=== PATIENT | male | born 1980 ===

== ENCOUNTER 2020-02-11 16:06 | Emergency (ER) | payer OTHER, SELFPAY ==
[2020-02-11 16:20] VITALS: BP 117/65; PULSE 62; RESP 14; TEMP 36.7; O2SAT 98; BMI 28.7
--- NOTE | 2020-02-11 18:04 | PC.NURSE ---
Patient states he has to go home as his needs to go to work. VDC signed, placed in chart.
== END 2020-02-11 18:00 | disposition left against medical advice (07) ==
PROVIDERS: Emergency Provider Emergency Medicine
CPT/HCPCS: 99281

== ENCOUNTER → 2020-04-18 07:46 | Outpatient (CLI) | payer OTHER, SELFPAY ==
--- NOTE | 2020-04-18 | DI.MRI.S_ITS ---
PROCEDURE: MR HAND RT WO CON INDICATIONS: Pain in right finger(s) TECHNIQUE: Noncontrast coronal T1 spin echo and T2 fast spin echo with fat saturation, axial proton density fast spin echo and T2 fast spin echo with fat saturation, sagittal T1 spin echo and STIR through the hand and fingers. COMPARISON: None. FINDINGS: Image quality: Excellent. Bones: There is mild marrow edema involving the proximal phalanx of the middle finger at the PIP joint. There is subtle curvilinear low signal intensity possible nondisplaced fracture line seen on image 19/10. There is adjacent periarticular soft tissue edema. Thickened appearance of the ulnar and radial collateral ligaments of the PIP joint without definite complete rupture. Soft tissues: Fluid/edema surrounding the flexor tendons of the middle finger in keeping with tenosynovitis. There is mild thickening of the tendons in keeping with low-grade strain however no rupture identified. There is also edema surrounding the index finger flexor tendons to a lesser extent. The extensor tendons appear grossly intact. IMPRESSION: Periarticular soft tissue edema and thickened appearance of the ulnar and radial collateral ligaments of the middle finger PIP joint presumably reflecting high-grade sprain, without complete rupture. Possible nondisplaced fracture involving the proximal phalanx of the middle finger at the PIP joint although recommend dedicated evaluation with radiographs. Middle finger flexor tenosynovitis and low-grade tendinopathy. No rupture. Additional edema surrounding the index finger flexor tendons to a lesser extent. Dictated by: Tha Callahan M.D. on 04/18/2020 at 10:17 Approved by: Tha Callahan M.D. on 04/18/2020 at 10:26
== END ==
PROVIDERS: Referring Provider Student in an Organized Health Care Education/Training Program; Visit Provider Student in an Organized Health Care Education/Training Program
DX: M25.441 Effusion, right hand (principal); M65.841 Other synovitis and tenosynovitis, right hand
CPT/HCPCS: 73218

== ENCOUNTER 2024-03-16 09:45 | Outpatient (RCR) | payer OTHER, SELFPAY ==
--- NOTE | 2023-10-30 08:49 | PT.OIE ---
Current Diagnoses Pain in right shoulder (10/30/23) Abnormal posture (10/30/23) Weakness (10/30/23) Strain of muscle and tendon of front wall of thorax, initial encounter (10/30/23) Past Medical History (Last Updated 02/14/20 @ 11:47 by Kiesha De Oliveira PA-C) TMJ (temporomandibular joint syndrome) Visit Care Team Role Provider Type Lenin Clemons MD Attending Provider Physician Family Provider Primary Care Provider Referring Provider Specialty: [facility] Address: [facility] [place], [address] Email: [email or web address] [facility] Initial Evaluation PT-OP-A Visit Information Start: 10/30/23 08:13 Freq: Status: Active Protocol: Document 10/30/23 08:13 SAK (Rec: 10/30/23 09:03 SAK [id number]) Out-Patient Physical Therapy Visit Information Visit Information Visit Type Initial Evaluation Visit Start Time 08:15 Visit Stop Time 09:00 Visit Number 1 Evaluation Information Evaluation Date 10/30/23 PT-OP-B Current Condition Start: 10/30/23 08:13 Freq: Status: Active Protocol: Document 10/30/23 08:13 SAK (Rec: 10/30/23 09:03 SAK [id number]) Current Condition History of Current Condition Onset Date 6 months Current Complaints right shoulder pain History of Current Condition first experienced pain when bench pressing 140 lbs; gradually noticing, went traditional chinese herbalist, 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 Has't gotten better even with rest, cant reach behind back, painful lifting overhead. 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 Painful to sleep on right side. now painful picking up his 60 lb daughter Prior Treatments and Tests Ice, heat; didn't help much. Future Testing and Treatments Planned return to Dr. Barahona Treatment Goals Patient/Caregiver Goals Return to full active use of right arm. Prior Functional Status Baseline Function- ADL's Independent Baseline Function- Mobility Independent Baseline Function- Work/School no pain Baseline Function- Recreation/Hobbies no pain Current Functional Impairments (Reported) Functional Limitations- ADL's painful reaching overhead and behind his back Functional Limitations- Work/School painful to reach overhead and behind his back Functional Limitations- Recreation/ painful to reach overhead and Hobbies behind his back PT-OP-C Subjective Start: 10/30/23 08:13 Freq: Status: Active Protocol: Document 10/30/23 08:13 SAK (Rec: 11/03/23 08:48 SAK [id number]) Patient Questionnaires Quick Dash- Upper Extremity Quick Dash UE Score 32 Quick Dash UE Impairment 20 to 39% Impaired (Score 20- 39) OP-PT Pain Assessment Pain Assessment Grid Paper Pain Assessment Grid Completed Yes Location right shoulder Pain Location Details lateral with radiation into upper arm lateral Intensity 5 Scale Used Numeric (0 - 10) Description Aching,Pinching,Tender,With Movement Frequency Frequent Pain Aggravating Factors Position,ADL's,Bending,Lifting Other Pain Aggravating Factors reaching Pain Alleviating Factors None PT-OP-H Neuro Start: 10/30/23 08:13 Freq: Status: Active Protocol: Document 10/30/23 08:13 SAK (Rec: 10/30/23 09:03 SAK [id number]) Sensation Evaluation Gross Sensation Gross Sensation WNL PT-OP-J Posture/Palpation/Skin Start: 10/30/23 08:13 Freq: Status: Active Protocol: Document 10/30/23 08:13 SAK (Rec: 10/30/23 09:03 SAK [id number]) Posture Evaluation Position Sitting Head/C-Spine Posture Forward Head T-Spine Posture Increased Kyphosis Scapula Posture (L) Protracted,(R) Protracted Arm Posture (L) Internally Rotated,(R) Internally Rotated Palpation Assessment Location RC Palpation Findings Tenderness PT-OP-K Range of Motion Start: 10/30/23 08:13 Freq: Status: Active Protocol: Document 10/30/23 08:13 SAK (Rec: 10/30/23 09:03 SAK [id number]) Cervical Spine Range of Motion Cervical Spine Active Comments WNL Shoulder Goniometric Range of Motion Shoulder Right Shoulder ROM WFL No Flexion 142 Extension 140 Abduction 140 Internal Rotation Behind Back (text) posterior hip left Shoulder ROM WFL Yes Internal Rotation Behind Back (text) T7 Elbow/Forearm Range of Motion Elbow/Forearm oralia Elbow/Forearm ROM WFL Yes PT-OP-L Special Tests Start: 10/30/23 08:13 Freq: Status: Active Protocol: Document 10/30/23 08:13 [facility] (Rec: 11/03/23 08:48 [facility] [id number]) Special Tests Shoulder Special Tests [place] Impingement Test Results + Elevation Impingement Test Results + Drop Arm Rotator Cuff Test Results + inc pain Belly Press Test Results + inc pain PT-OP-M Strength Start: 10/30/23 08:13 Freq: Status: Active Protocol: Document 10/30/23 08:13 [facility] (Rec: 11/03/23 08:48 [facility] [id number]) Shoulder Strength Shoulder Manual Muscle Testing Right Flexion 4+ Good+ Extension 4+ Good+ Abduction (C5) 5 Normal Adduction 4 Good External Rotation 4 Good Internal Rotation 4 Good Horizontal Abduction 4 Good Comments lower trap 3-/5 Left Flexion 5 Normal Extension 5 Normal Abduction (C5) 5 Normal Adduction 5 Normal External Rotation 4+ Good+ Internal Rotation 4+ Good+ Horizontal Abduction 5 Normal Elbow/Forearm Strength Elbow and Forearm Manual Muscle Testing oralia Flexion (C6) 5 Normal Extension (C7) 5 Normal PT-OP-Q Treatments Start: 10/30/23 08:13 Freq: Status: Active Protocol: Document 10/30/23 08:13 [facility] (Rec: 11/03/23 08:48 [facility] [id number]) Self-Care/Home Management Treatment Education Patient Education Home Exercise Program,Pain Management,Posture PT-OP-T Assessment and Plan Start: 10/30/23 08:13 Freq: Status: Active Protocol: Document 10/30/23 08:13 [facility] (Rec: 11/03/23 08:48 [facility] [id number]) Physical Therapy Assessment Rehab Potential Rehabilitation Potential Good Evaluation Complexity Number of Personal Factors/Comorbidities 1-2 Number of Body Systems Impaired 3 Clinical Presentation at Evaluation Evolving Impairments Impairments Activity Tolerance,Pain, Posture,Strength Goals Three Impairment posterior chain and RC weakness Short Term Goal (STG) Patient to be instructed in individualized, progressive HEP for purposes of posterior chain and RC strengthening STG Duration 11/30/23 Fdc Goal (LTG) Patient to demonstrate 5/5 muscle strength right shoulder for improved shoulder function LTG Duration 01/30/24 Two Impairment postural impairment Impairment moderate rounded shoulder posture with shoulder IR and scapular protraction Short Term Goal (STG) Patient to be instructed neutral posture for shoulder function and be instructed in postural correction exercises and activities STG Duration 11/30/23 Vest Busheler Goal (LTG) Patient to be able to demonstrate good postural awareness and ability to self- correct without cues and be independnet and compliant with postural correction exercises and activities LTG Duration 01/30/24 One Impairment activity tolerance Impairment Quickdash UE disability index score 32% impacting ADL's,work , and recreation Short Term Goal (STG) Decrease Quickdash score to no greater than 20% STG Duration 11/30/23 Vest Busheler Goal (LTG) Decrease Quickdash score to no greater than 5% as measure of improved activity tolerance with ADL's, work, and recreational activities including ability to reach overhead and behind his back without pain. LTG Duration 01/30/24 Assessment Summary Assessment Patient presents to PT with function-limiting pain right shoulder , gradual onset but first felt during bench press at the gym. Pain has not subsided with rest and impacts patient daily activities at home, work, and recreation. Signs and symptoms are positive for right shoulder impingement with rotator cuff irritation. Patient has weakness in rotator cuff and posterior chain musculature as well as postural dysfunction which appear highly contributory. Feel he will benefit from PT to improve his postural alignment and strength, and help him return to prior level of function. Patient education with initial HEP issued today. POC was discussed and he was in agreement. Physical Therapy Plan Frequency and Duration Frequency of Treatment 2x/Week Duration of treatment (weeks) 12 Plan of Care Start Date 10/30/23 Plan of Care End Date 01/30/24 Therapeutic Interventions Therapeutic Interventions Home Exercise Program,Joint Mobilizations,Manual Therapy, Neuromuscular Re-education, Patient/Caregiver Education, Self-Care/Home Management,Soft Tissue Mobilization,Taping, Therapeutic Activities, Therapeutic Exercises Modalities Cold Pack/Ice Massage,Electric Stimulation,Hot Packs, Infrared Therapy,Iontophoresis ,Ultrasound Next Visit Focus/Plan Next Note Type Treatment Note Next Visit Plan Review HEP, further education in neutral posture, RC and posterior chain strengthening including I's, T's, Y's possibly starting supine over foam roller, progress to prone with resistance. Modalities and manual therapy PRN
--- NOTE | 2023-10-30 08:50 | PT.OPPOC ---
Physical, Occupational & Speech Therapy At [facility] Current Diagnoses Pain in right shoulder (10/30/23) Abnormal posture (10/30/23) Weakness (10/30/23) Strain of muscle and tendon of front wall of thorax, initial encounter (10/30/23) Visit Care Team Role Provider Type Lenin Clemons MD Attending Provider Physician Family Provider Primary Care Provider Referring Provider Specialty: Family Practice Address: [facility] [place], [place], [facility] Email: [email or web address] Plan Of Care PT-OP-T Assessment and Plan Start: 10/30/23 08:13 Freq: Status: Active Protocol: Document 10/30/23 08:13 SAK (Rec: 11/03/23 08:48 SAK [id number]) Physical Therapy Assessment Rehab Potential Rehabilitation Potential Good Evaluation Complexity Number of Personal Factors/Comorbidities 1-2 Number of Body Systems Impaired 3 Clinical Presentation at Evaluation Evolving Impairments Impairments Activity Tolerance,Pain, Posture,Strength Goals Three Impairment posterior chain and RC weakness Short Term Goal (STG) Patient to be instructed in individualized, progressive HEP for purposes of posterior chain and RC strengthening STG Duration 11/30/23 Algology Teacher Goal (LTG) Patient to demonstrate 5/5 muscle strength right shoulder for improved shoulder function LTG Duration 01/30/24 Two Impairment postural impairment Impairment moderate rounded shoulder posture with shoulder IR and scapular protraction Short Term Goal (STG) Patient to be instructed neutral posture for shoulder function and be instructed in postural correction exercises and activities STG Duration 11/30/23 Usp Goal (LTG) Patient to be able to demonstrate good postural awareness and ability to self- correct without cues and be independnet and compliant with postural correction exercises and activities LTG Duration 01/30/24 One Impairment activity tolerance Impairment Quickdash UE disability index score 32% impacting ADL's,work , and recreation Short Term Goal (STG) Decrease Quickdash score to no greater than 20% STG Duration 11/30/23 Algology Teacher Goal (LTG) Decrease Quickdash score to no greater than 5% as measure of improved activity tolerance with ADL's, work, and recreational activities including ability to reach overhead and behind his back without pain. LTG Duration 01/30/24 Assessment Summary Assessment Patient presents to PT with function-limiting pain right shoulder , gradual onset but first felt during bench press at the gym. Pain has not subsided with rest and impacts patient daily activities at home, work, and recreation. Signs and symptoms are positive for right shoulder impingement with rotator cuff irritation. Patient has weakness in rotator cuff and posterior chain musculature as well as postural dysfunction which appear highly contributory. Feel he will benefit from PT to improve his postural alignment and strength, and help him return to prior level of function. Patient education with initial HEP issued today. POC was discussed and he was in agreement. Physical Therapy Plan Frequency and Duration Frequency of Treatment 2x/Week Duration of treatment (weeks) 12 Plan of Care Start Date 10/30/23 Plan of Care End Date 01/30/24 Therapeutic Interventions Therapeutic Interventions Home Exercise Program,Joint Mobilizations,Manual Therapy, Neuromuscular Re-education, Patient/Caregiver Education, Self-Care/Home Management,Soft Tissue Mobilization,Taping, Therapeutic Activities, Therapeutic Exercises Modalities Cold Pack/Ice Massage,Electric Stimulation,Hot Packs, Infrared Therapy,Iontophoresis ,Ultrasound Next Visit Focus/Plan Next Note Type Treatment Note Next Visit Plan Review HEP, further education in neutral posture, RC and posterior chain strengthening including I's, T's, Y's possibly starting supine over foam roller, progress to prone with resistance. Modalities and manual therapy PRN Plan of Care Dates Plan of Care Start Date 10/30/23 Plan of Care End Date 01/30/24 Electronically Signed by: Sharita Haider, PT 11/03/23 0868 If you are in agreement with this Plan of Care, please return a signed and dated copy. I have reviewed this Plan of Care and certify that the skilled therapy services above are required to meet the patient?s needs. Physician Signature Date Printed Name and Credentials Clinical Instructor Signature Printed Name and Credentials
--- NOTE | 2023-11-04 12:03 | PT.OTN ---
Current Diagnoses Pain in right shoulder (11/04/23) Abnormal posture (11/04/23) Weakness (11/04/23) Strain of muscle and tendon of front wall of thorax, initial encounter (11/04/23) Physical Therapy Treatment Note PT-OP-A Visit Information Start: 10/30/23 08:13 Freq: Status: Active Protocol: Document 11/04/23 08:13 AB (Rec: 11/04/23 12:03 AB [id number]) Out-Patient Physical Therapy Visit Information Visit Information Visit Type Treatment Note Visit Start Time 09:03 Visit Stop Time 09:45 Visit Number 2 Number of TAX COMPLIANCE AGENT Visits 1 Evaluation Information Evaluation Date 10/30/23 PT-OP-B Current Condition Start: 10/30/23 08:13 Freq: Status: Active Protocol: Document 10/30/23 08:13 SAK (Rec: 10/30/23 09:03 SAK [id number]) Current Condition History of Current Condition Onset Date 6 months Current Complaints right shoulder pain History of Current Condition first experienced pain when bench pressing 140 lbs; gradually noticing, went potato grader, 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 Has't gotten better even with rest, cant reach behind back, painful lifting overhead. 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 Painful to sleep on right side. now painful picking up his 60 lb daughter Prior Treatments and Tests Ice, heat; didn't help much. Future Testing and Treatments Planned return to Dr. Barahona Treatment Goals Patient/Caregiver Goals Return to full active use of right arm. Prior Functional Status Baseline Function- ADL's Independent Baseline Function- Mobility Independent Baseline Function- Work/School no pain Baseline Function- Recreation/Hobbies no pain Current Functional Impairments (Reported) Functional Limitations- ADL's painful reaching overhead and behind his back Functional Limitations- Work/School painful to reach overhead and behind his back Functional Limitations- Recreation/ painful to reach overhead and Hobbies behind his back PT-OP-C Subjective Start: 10/30/23 08:13 Freq: Status: Active Protocol: Document 11/04/23 08:13 AB (Rec: 11/04/23 12:03 AB [id number]) OP-PT Subjective Patient Comments Patient Comments Patient reports he was better for a few days, but the ache returned in the last few days. AROM 144 deg right shoulder flexion start of session. PT-OP-H Neuro Start: 10/30/23 08:13 Freq: Status: Active Protocol: Document 10/30/23 08:13 SAK (Rec: 10/30/23 09:03 SAK [id number]) Sensation Evaluation Gross Sensation Gross Sensation WNL PT-OP-J Posture/Palpation/Skin Start: 10/30/23 08:13 Freq: Status: Active Protocol: Document 10/30/23 08:13 SAK (Rec: 10/30/23 09:03 SAK [id number]) Posture Evaluation Position Sitting Head/C-Spine Posture Forward Head T-Spine Posture Increased Kyphosis Scapula Posture (L) Protracted,(R) Protracted Arm Posture (L) Internally Rotated,(R) Internally Rotated Palpation Assessment Location RC Palpation Findings Tenderness PT-OP-K Range of Motion Start: 10/30/23 08:13 Freq: Status: Active Protocol: Document 10/30/23 08:13 SAK (Rec: 10/30/23 09:03 [facility] [id number]) Cervical Spine Range of Motion Cervical Spine Active Comments WNL Shoulder Goniometric Range of Motion Shoulder Right Shoulder ROM WFL No Flexion 142 Extension 140 Abduction 140 Internal Rotation Behind Back (text) posterior hip left Shoulder ROM WFL Yes Internal Rotation Behind Back (text) T7 Elbow/Forearm Range of Motion Elbow/Forearm oralia Elbow/Forearm ROM WFL Yes PT-OP-L Special Tests Start: 10/30/23 08:13 Freq: Status: Active Protocol: Document 10/30/23 08:13 SAK (Rec: 11/03/23 08:48 [facility] [id number]) Special Tests Shoulder Special Tests [place] Impingement Test Results + Elevation Impingement Test Results + Drop Arm Rotator Cuff Test Results + inc pain Belly Press Test Results + inc pain PT-OP-M Strength Start: 10/30/23 08:13 Freq: Status: Active Protocol: Document 10/30/23 08:13 SAK (Rec: 11/03/23 08:48 [facility] [id number]) Shoulder Strength Shoulder Manual Muscle Testing Right Flexion 4+ Good+ Extension 4+ Good+ Abduction (C5) 5 Normal Adduction 4 Good External Rotation 4 Good Internal Rotation 4 Good Horizontal Abduction 4 Good Comments lower trap 3-/5 Left Flexion 5 Normal Extension 5 Normal Abduction (C5) 5 Normal Adduction 5 Normal External Rotation 4+ Good+ Internal Rotation 4+ Good+ Horizontal Abduction 5 Normal Elbow/Forearm Strength Elbow and Forearm Manual Muscle Testing oralia Flexion (C6) 5 Normal Extension (C7) 5 Normal PT-OP-Q Treatments Start: 10/30/23 08:13 Freq: Status: Active Protocol: Document 11/04/23 08:13 AB (Rec: 11/04/23 12:03 AB [id number]) Therapeutic Exercises Supine Exercises mini band on foam roller Side bilateral Resistance level one band Reps/Minutes X10 Comments Verbal cues alternating UE flexion on foam roller Supine Exercise Name soft foam roller Side bilateral Reps/Minutes X15 Comments 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 Supine Exercise Name on soft foam roller Side bilateral Reps/Minutes 2 minutes Comments verbal cues Standing Exercises high row Resistance level 3 green band Reps/Minutes X15 Comments verbal and visual cues wall slide Side right Reps/Minutes X10 Comments Verbal cues to step to wall, wall slide flex, then lift UE off wall and low standing pec stretch Reps/Minutes X2 Comments Not jeannie, patient ed to discontinue at this time due to shoulder pain row Side bilateral Equipment Used level 3 green band Reps/Minutes 15 X2 Comments verbal and visual cues for row vs triceps/elbow extension Manual Therapy Treatment Soft Tissue Mobilization right shoulder Body Location pec, post cuff, UT and levator scap Mobilization Type Cross-Friction,Rolling, Sustained Pressure Intensity/Depth Moderate Body Position Hooklying Comments and sidelying Joint Mobilizations scapular mobilization Joint right Direction into depression and adduction Grade III Body Position Sidelying Reps/Duration X10 each GH right Direction ap and inf Grade IV Body Position Hooklying Reps/Duration X10 X2 PT-OP-T Assessment and Plan Start: 10/30/23 08:13 Freq: Status: Active Protocol: Document 11/04/23 08:13 AB (Rec: 11/04/23 12:03 AB [id number]) Physical Therapy Assessment Goals Three Impairment posterior chain and RC weakness Short Term Goal (STG) Patient to be instructed in individualized, progressive HEP for purposes of posterior chain and RC strengthening STG Duration 11/30/23 Custodial Goal (LTG) Patient to demonstrate 5/5 muscle strength right shoulder for improved shoulder function LTG Duration 01/30/24 Two Impairment postural impairment Impairment moderate rounded shoulder posture with shoulder IR and scapular protraction Short Term Goal (STG) Patient to be instructed neutral posture for shoulder function and be instructed in postural correction exercises and activities STG Duration 11/30/23 Custodial Goal (LTG) Patient to be able to demonstrate good postural awareness and ability to self- correct without cues and be independnet and compliant with postural correction exercises and activities LTG Duration 01/30/24 One Impairment activity tolerance Impairment Quickdash UE disability index score 32% impacting ADL's,work , and recreation Short Term Goal (STG) Decrease Quickdash score to no greater than 20% STG Duration 11/30/23 Patient Partner Goal (LTG) Decrease Quickdash score to no greater than 5% as measure of improved activity tolerance with ADL's, work, and recreational activities including ability to reach overhead and behind his back without pain. LTG Duration 01/30/24 Assessment Summary Assessment AROM right shoulder flexion 149 deg end of session. ROM and strength right shoulder not yet WNL. Physical Therapy Plan Frequency and Duration Frequency of Treatment 2x/Week Duration of treatment (weeks) 12 Plan of Care Start Date 10/30/23 Plan of Care End Date 01/30/24 Next Visit Focus/Plan Next Visit Plan Review HEP, further education in neutral posture, RC and posterior chain strengthening including I's, T's, Y's possibly starting supine over foam roller, progress to prone with resistance. Modalities and manual therapy PRN
--- NOTE | 2023-11-07 10:07 | PT.OTN ---
Current Diagnoses Pain in right shoulder (11/07/23) Abnormal posture (11/07/23) Weakness (11/07/23) Strain of muscle and tendon of front wall of thorax, initial encounter (11/07/23) Physical Therapy Treatment Note PT-OP-A Visit Information Start: 10/30/23 08:13 Freq: Status: Active Protocol: Document 11/07/23 08:08 AB (Rec: 11/07/23 09:30 AB [id number]) Out-Patient Physical Therapy Visit Information Visit Information Visit Type Treatment Note Visit Note Access Code [email or web address] Visit Start Time 09:03 Visit Stop Time 09:46 Visit Number 3 Number of LIFT ELECTRICIAN Visits 2 Evaluation Information Evaluation Date 10/30/23 PT-OP-B Current Condition Start: 10/30/23 08:13 Freq: Status: Active Protocol: Document 10/30/23 08:13 SAK (Rec: 10/30/23 09:03 SAK [id number]) Current Condition History of Current Condition Onset Date 6 months Current Complaints right shoulder pain History of Current Condition first experienced pain when bench pressing 140 lbs; gradually noticing, 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 Has't gotten better even with rest, cant reach behind back, painful lifting overhead. 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 Painful to sleep on right side. now painful picking up his 60 lb daughter Prior Treatments and Tests Ice, heat; didn't help much. Future Testing and Treatments Planned return to Dr. Barahona Treatment Goals Patient/Caregiver Goals Return to full active use of right arm. Prior Functional Status Baseline Function- ADL's Independent Baseline Function- Mobility Independent Baseline Function- Work/School no pain Baseline Function- Recreation/Hobbies no pain Current Functional Impairments (Reported) Functional Limitations- ADL's painful reaching overhead and behind his back Functional Limitations- Work/School painful to reach overhead and behind his back Functional Limitations- Recreation/ painful to reach overhead and Hobbies behind his back PT-OP-C Subjective Start: 10/30/23 08:13 Freq: Status: Active Protocol: Document 11/07/23 08:08 AB (Rec: 11/07/23 09:30 AB [id number]) OP-PT Subjective Patient Comments Patient Comments Patient reports the shoulder is the same. Patient reports pain with pec stretch and no sensation of pulling with pec stretch. AROM 146 deg right shoulder flexion start of session. PT-OP-H Neuro Start: 10/30/23 08:13 Freq: Status: Active Protocol: Document 10/30/23 08:13 SAK (Rec: 10/30/23 09:03 [facility] [id number]) Sensation Evaluation Gross Sensation Gross Sensation WNL PT-OP-J Posture/Palpation/Skin Start: 10/30/23 08:13 Freq: Status: Active Protocol: Document 10/30/23 08:13 SAK (Rec: 10/30/23 09:03 [facility] [id number]) Posture Evaluation Position Sitting Head/C-Spine Posture Forward Head T-Spine Posture Increased Kyphosis Scapula Posture (L) Protracted,(R) Protracted Arm Posture (L) Internally Rotated,(R) Internally Rotated Palpation Assessment Location RC Palpation Findings Tenderness PT-OP-K Range of Motion Start: 10/30/23 08:13 Freq: Status: Active Protocol: Document 10/30/23 08:13 SAK (Rec: 10/30/23 09:03 [facility] [id number]) Cervical Spine Range of Motion Cervical Spine Active Comments WNL Shoulder Goniometric Range of Motion Shoulder Right Shoulder ROM WFL No Flexion 142 Extension 140 Abduction 140 Internal Rotation Behind Back (text) posterior hip left Shoulder ROM WFL Yes Internal Rotation Behind Back (text) T7 Elbow/Forearm Range of Motion Elbow/Forearm oralia Elbow/Forearm ROM WFL Yes PT-OP-L Special Tests Start: 10/30/23 08:13 Freq: Status: Active Protocol: Document 10/30/23 08:13 SAK (Rec: 11/03/23 08:48 [facility] [id number]) Special Tests Shoulder Special Tests [place] Impingement Test Results + Elevation Impingement Test Results + Drop Arm Rotator Cuff Test Results + inc pain Belly Press Test Results + inc pain PT-OP-M Strength Start: 10/30/23 08:13 Freq: Status: Active Protocol: Document 10/30/23 08:13 SAK (Rec: 11/03/23 08:48 [facility] [id number]) Shoulder Strength Shoulder Manual Muscle Testing Right Flexion 4+ Good+ Extension 4+ Good+ Abduction (C5) 5 Normal Adduction 4 Good External Rotation 4 Good Internal Rotation 4 Good Horizontal Abduction 4 Good Comments lower trap 3-/5 Left Flexion 5 Normal Extension 5 Normal Abduction (C5) 5 Normal Adduction 5 Normal External Rotation 4+ Good+ Internal Rotation 4+ Good+ Horizontal Abduction 5 Normal Elbow/Forearm Strength Elbow and Forearm Manual Muscle Testing oralia Flexion (C6) 5 Normal Extension (C7) 5 Normal PT-OP-Q Treatments Start: 10/30/23 08:13 Freq: Status: Active Protocol: Document 11/07/23 08:08 AB (Rec: 11/07/23 09:30 AB [id number]) Therapeutic Exercises Supine Exercises shoulder flexion Supine Exercise Name AROM Side bilateral Reps/Minutes X10 Comments verbal cues for 10 sec hold, monitored for pain mini band on foam roller Reps/Minutes not jeannie alternating UE flexion on foam roller Supine Exercise Name soft foam roller Side bilateral Reps/Minutes X15 Comments Verbal cues Sitting Exercises short sit to upright Side bilateral Reps/Minutes 1x Comments not jeannie, verbal cues, monitored for pain pec stretch Sitting Exercise Name hands behind head Side bilateral Reps/Minutes 60 X 2 Comments verbal and visual cues Standing Exercises push up plus Reps/Minutes X1 Comments not jeannie L stretch Side bilateral Reps/Minutes 15 seconds X 3 isometric reactive shoulder IR and ER Side right Resistance level one band Reps/Minutes X15 wall slide Side right Reps/Minutes X10 Comments Verbal cues to step to wall, wall slide flex, then lift UE off wall and low standing pec stretch Reps/Minutes X2 Comments Not jeannie, patient ed to discontinue at this time due to shoulder pain Manual Therapy Treatment Soft Tissue Mobilization right shoulder Body Location pec, post cuff, UT and levator scap Mobilization Type Cross-Friction,Rolling, Sustained Pressure Intensity/Depth Moderate Body Position Hooklying Comments and sidelying Joint Mobilizations scapular mobilization Joint right Direction into depression and adduction Grade III Body Position Sidelying Reps/Duration X10 each GH right Direction ap and inf Grade IV Body Position Hooklying Reps/Duration X10 X2 PT-OP-T Assessment and Plan Start: 10/30/23 08:13 Freq: Status: Active Protocol: Document 11/07/23 08:08 AB (Rec: 11/07/23 09:30 AB [id number]) Physical Therapy Assessment Goals Three Impairment posterior chain and RC weakness Short Term Goal (STG) Patient to be instructed in individualized, progressive HEP for purposes of posterior chain and RC strengthening STG Duration 11/30/23 Long-Term Goal (LTG) Patient to demonstrate 5/5 muscle strength right shoulder for improved shoulder function LTG Duration 01/30/24 Two Impairment postural impairment Impairment moderate rounded shoulder posture with shoulder IR and scapular protraction Short Term Goal (STG) Patient to be instructed neutral posture for shoulder function and be instructed in postural correction exercises and activities STG Duration 11/30/23 Rotating Equipment Specialist Goal (LTG) Patient to be able to demonstrate good postural awareness and ability to self- correct without cues and be independnet and compliant with postural correction exercises and activities LTG Duration 01/30/24 One Impairment activity tolerance Impairment Quickdash UE disability index score 32% impacting ADL's,work , and recreation Short Term Goal (STG) Decrease Quickdash score to no greater than 20% STG Duration 11/30/23 Long-Term Goal (LTG) Decrease Quickdash score to no greater than 5% as measure of improved activity tolerance with ADL's, work, and recreational activities including ability to reach overhead and behind his back without pain. LTG Duration 01/30/24 Assessment Summary Assessment AROM right shoulder 154 deg flexion end of session should allow Edgard to reach items placed at higher levels in the home. Decreased jeannie to mini band and wall push up, short sit ( light weightbearing ex) this session. Physical Therapy Plan Frequency and Duration Frequency of Treatment 2x/Week Duration of treatment (weeks) 12 Plan of Care Start Date 10/30/23 Plan of Care End Date 01/30/24 Next Visit Focus/Plan Next Note Type Treatment Note Next Visit Plan next session trial further education in neutral posture, RC and focus on posterior chain strengthening including I's, T's, Y's possibly starting supine over foam roller, progress to prone with resistance. Modalities and manual therapy PRN
--- NOTE | 2023-11-11 08:08 | PT-OP ANOTE ---
patient cancelled due to waking up with a fever
--- NOTE | 2023-11-21 16:32 | PT.OTN ---
Current Diagnoses Pain in right shoulder (11/21/23) Abnormal posture (11/21/23) Weakness (11/21/23) Strain of muscle and tendon of front wall of thorax, initial encounter (11/21/23) Physical Therapy Treatment Note PT-OP-A Visit Information Start: 10/30/23 08:13 Freq: Status: Active Protocol: Document 11/21/23 12:47 AB (Rec: 11/21/23 16:32 AB [id number]) Out-Patient Physical Therapy Visit Information Visit Information Visit Type Treatment Note Visit Note Access Code [email or web address] Visit Start Time 14:33 Visit Stop Time 15:17 Visit Number 4 Number of SOLID WASTE FACILITY SUPERVISOR Visits 3 Evaluation Information Evaluation Date 10/30/23 PT-OP-B Current Condition Start: 10/30/23 08:13 Freq: Status: Active Protocol: Document 10/30/23 08:13 SAK (Rec: 10/30/23 09:03 SAK [id number]) Current Condition History of Current Condition Onset Date 6 months Current Complaints right shoulder pain History of Current Condition first experienced pain when bench pressing 140 lbs; 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 Has't gotten better even with rest, cant reach behind back, painful lifting overhead. 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 Painful to sleep on right side. now painful picking up his 60 lb daughter Prior Treatments and Tests Ice, heat; didn't help much. Future Testing and Treatments Planned return to Dr. Barahona Treatment Goals Patient/Caregiver Goals Return to full active use of right arm. Prior Functional Status Baseline Function- ADL's Independent Baseline Function- Mobility Independent Baseline Function- Work/School no pain Baseline Function- Recreation/Hobbies no pain Current Functional Impairments (Reported) Functional Limitations- ADL's painful reaching overhead and behind his back Functional Limitations- Work/School painful to reach overhead and behind his back Functional Limitations- Recreation/ painful to reach overhead and Hobbies behind his back PT-OP-C Subjective Start: 10/30/23 08:13 Freq: Status: Active Protocol: Document 11/21/23 12:47 AB (Rec: 11/21/23 16:32 AB [id number]) OP-PT Subjective Patient Comments Patient Comments Patient reports he did some mountain biking with daughter ( light mt biking ) and had pain that night. AROM 143 deg right shoulder flexion start of session. PT-OP-H Neuro Start: 10/30/23 08:13 Freq: Status: Active Protocol: Document 10/30/23 08:13 SAK (Rec: 10/30/23 09:03 [facility] [id number]) Sensation Evaluation Gross Sensation Gross Sensation WNL PT-OP-J Posture/Palpation/Skin Start: 10/30/23 08:13 Freq: Status: Active Protocol: Document 10/30/23 08:13 SAK (Rec: 10/30/23 09:03 [facility] [id number]) Posture Evaluation Position Sitting Head/C-Spine Posture Forward Head T-Spine Posture Increased Kyphosis Scapula Posture (L) Protracted,(R) Protracted Arm Posture (L) Internally Rotated,(R) Internally Rotated Palpation Assessment Location RC Palpation Findings Tenderness PT-OP-K Range of Motion Start: 10/30/23 08:13 Freq: Status: Active Protocol: Document 10/30/23 08:13 SAK (Rec: 10/30/23 09:03 [facility] [id number]) Cervical Spine Range of Motion Cervical Spine Active Comments WNL Shoulder Goniometric Range of Motion Shoulder Right Shoulder ROM WFL No Flexion 142 Extension 140 Abduction 140 Internal Rotation Behind Back (text) posterior hip left Shoulder ROM WFL Yes Internal Rotation Behind Back (text) T7 Elbow/Forearm Range of Motion Elbow/Forearm oralia Elbow/Forearm ROM WFL Yes PT-OP-L Special Tests Start: 10/30/23 08:13 Freq: Status: Active Protocol: Document 10/30/23 08:13 SAK (Rec: 11/03/23 08:48 [facility] [id number]) Special Tests Shoulder Special Tests [place] Impingement Test Results + Elevation Impingement Test Results + Drop Arm Rotator Cuff Test Results + inc pain Belly Press Test Results + inc pain PT-OP-M Strength Start: 10/30/23 08:13 Freq: Status: Active Protocol: Document 10/30/23 08:13 SAK (Rec: 11/03/23 08:48 [facility] [id number]) Shoulder Strength Shoulder Manual Muscle Testing Right Flexion 4+ Good+ Extension 4+ Good+ Abduction (C5) 5 Normal Adduction 4 Good External Rotation 4 Good Internal Rotation 4 Good Horizontal Abduction 4 Good Comments lower trap 3-/5 Left Flexion 5 Normal Extension 5 Normal Abduction (C5) 5 Normal Adduction 5 Normal External Rotation 4+ Good+ Internal Rotation 4+ Good+ Horizontal Abduction 5 Normal Elbow/Forearm Strength Elbow and Forearm Manual Muscle Testing oralia Flexion (C6) 5 Normal Extension (C7) 5 Normal PT-OP-Q Treatments Start: 10/30/23 08:13 Freq: Status: Active Protocol: Document 11/21/23 12:47 AB (Rec: 11/21/23 16:32 AB [id number]) Therapeutic Exercises Supine Exercises mini band on foam roller Side bilateral Resistance single thickness level one Reps/Minutes X10 Comments monitored for pain alternating UE flexion on foam roller Supine Exercise Name soft foam roller Side bilateral Reps/Minutes X15 Comments 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 Supine Exercise Name on soft foam roller Side bilateral Reps/Minutes 2 minutes Comments verbal cues Prone Exercises prone Y,T's Prone Exercise Name Y 1 lb T 2 lb Side bilateral Resistance 1 lb y 2 lb T Reps/Minutes 2 X 10 each exercise Comments verbal cues Standing Exercises high row Resistance level 3 green band Reps/Minutes X15 Comments verbal and visual cues Manual Therapy Treatment Soft Tissue Mobilization right shoulder Body Location pec, post cuff, UT and levator scap Mobilization Type Cross-Friction,Rolling, Sustained Pressure Intensity/Depth Moderate Body Position Hooklying Comments and sidelying Joint Mobilizations scapular mobilization Joint right Direction into depression and adduction Grade III Body Position Sidelying Reps/Duration X10 each GH right Direction ap and inf Grade IV Body Position Hooklying Reps/Duration X10 X2 Taping right shoulder Body Location Pt ed to remove tape in 3-5 days or immediately if skin irritation occurs. Treatment Focus posture and dec UT/levator scap activation Type of Tape Kinesio Tape Skin Inspection WNL Comments ant shoulder to Rhomboids Levator scap with scap depression and UT with CS sidebend left, insertion back to origin PT-OP-T Assessment and Plan Start: 10/30/23 08:13 Freq: Status: Active Protocol: Document 11/21/23 12:47 AB (Rec: 11/21/23 16:32 AB [id number]) Physical Therapy Assessment Goals Three Impairment posterior chain and RC weakness Short Term Goal (STG) Patient to be instructed in individualized, progressive HEP for purposes of posterior chain and RC strengthening STG Duration 11/30/23 Retirement Goal (LTG) Patient to demonstrate 5/5 muscle strength right shoulder for improved shoulder function LTG Duration 01/30/24 Two Impairment postural impairment Impairment moderate rounded shoulder posture with shoulder IR and scapular protraction Short Term Goal (STG) Patient to be instructed neutral posture for shoulder function and be instructed in postural correction exercises and activities STG Duration 11/30/23 Retirement Goal (LTG) Patient to be able to demonstrate good postural awareness and ability to self- correct without cues and be independnet and compliant with postural correction exercises and activities LTG Duration 01/30/24 One Impairment activity tolerance Impairment Quickdash UE disability index score 32% impacting ADL's,work , and recreation Short Term Goal (STG) Decrease Quickdash score to no greater than 20% STG Duration 11/30/23 Retirement Goal (LTG) Decrease Quickdash score to no greater than 5% as measure of improved activity tolerance with ADL's, work, and recreational activities including ability to reach overhead and behind his back without pain. LTG Duration 01/30/24 Assessment Summary Assessment 150 deg AROM shoulder flexon right shoulder end of session should allow patient to reach items placed at higher levels in the home. Patient reports the KT tape feels good end of session. 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 Physical Therapy Plan Frequency and Duration Frequency of Treatment 2x/Week Duration of treatment (weeks) 12 Plan of Care Start Date 10/30/23 Plan of Care End Date 01/30/24 Therapeutic Interventions Therapeutic Interventions Home Exercise Program,Joint Mobilizations,Manual Therapy, Neuromuscular Re-education, Patient/Caregiver Education, Self-Care/Home Management,Soft Tissue Mobilization,Taping, Therapeutic Activities, Therapeutic Exercises Modalities Cold Pack/Ice Massage,Electric Stimulation,Hot Packs, Infrared Therapy,Iontophoresis ,Ultrasound Next Visit Focus/Plan Next Note Type Treatment Note Next Visit Plan next session trial further education in neutral posture, RC and focus on posterior chain strengthening including I's, possibly starting supine over foam roller, progress to prone with resistance. Assess tolerance to T's and Y's and Kinesiotape. Modalities and manual therapy PRN
--- NOTE | 2023-11-28 10:50 | PT.OTN ---
Current Diagnoses Pain in right shoulder (11/28/23) Abnormal posture (11/28/23) Weakness (11/28/23) Strain of muscle and tendon of front wall of thorax, initial encounter (11/28/23) Physical Therapy Treatment Note PT-OP-A Visit Information Start: 10/30/23 08:13 Freq: Status: Active Protocol: Document 11/28/23 08:10 AB (Rec: 11/28/23 10:50 AB [id number]) Out-Patient Physical Therapy Visit Information Visit Information Visit Type Treatment Note Visit Note Access Code [email or web address] Visit Start Time 08:20 Visit Stop Time 09:00 Visit Number 5 Number of MAMMALOGIST Visits 4 Evaluation Information Evaluation Date 10/30/23 PT-OP-B Current Condition Start: 10/30/23 08:13 Freq: Status: Active Protocol: Document 10/30/23 08:13 SAK (Rec: 10/30/23 09:03 SAK [id number]) Current Condition History of Current Condition Onset Date 6 months Current Complaints right shoulder pain History of Current Condition first experienced pain when bench pressing 140 lbs; gradually noticing, 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 Has't gotten better even with rest, cant reach behind back, painful lifting overhead. 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 Painful to sleep on right side. now painful picking up his 60 lb daughter Prior Treatments and Tests Ice, heat; didn't help much. Future Testing and Treatments Planned return to Dr. Barahona Treatment Goals Patient/Caregiver Goals Return to full active use of right arm. Prior Functional Status Baseline Function- ADL's Independent Baseline Function- Mobility Independent Baseline Function- Work/School no pain Baseline Function- Recreation/Hobbies no pain Current Functional Impairments (Reported) Functional Limitations- ADL's painful reaching overhead and behind his back Functional Limitations- Work/School painful to reach overhead and behind his back Functional Limitations- Recreation/ painful to reach overhead and Hobbies behind his back PT-OP-C Subjective Start: 10/30/23 08:13 Freq: Status: Active Protocol: Document 11/28/23 08:10 AB (Rec: 11/28/23 10:50 AB [id number]) OP-PT Subjective Patient Comments Patient Comments Patient reports the tape was helpful, and the shoulder is good, does have some pain with quick movement, pushing to get up out of bed. Patient able to perform short sit to upright right UE without pain. AROM right shoulder flexion 150 deg start of session, PT-OP-H Neuro Start: 10/30/23 08:13 Freq: Status: Active Protocol: Document 10/30/23 08:13 SAK (Rec: 10/30/23 09:03 SAK [id number]) Sensation Evaluation Gross Sensation Gross Sensation WNL PT-OP-J Posture/Palpation/Skin Start: 10/30/23 08:13 Freq: Status: Active Protocol: Document 10/30/23 08:13 SAK (Rec: 10/30/23 09:03 SAK [id number]) Posture Evaluation Position Sitting Head/C-Spine Posture Forward Head T-Spine Posture Increased Kyphosis Scapula Posture (L) Protracted,(R) Protracted Arm Posture (L) Internally Rotated,(R) Internally Rotated Palpation Assessment Location RC Palpation Findings Tenderness PT-OP-K Range of Motion Start: 10/30/23 08:13 Freq: Status: Active Protocol: Document 10/30/23 08:13 SAK (Rec: 10/30/23 09:03 [facility] [id number]) Cervical Spine Range of Motion Cervical Spine Active Comments WNL Shoulder Goniometric Range of Motion Shoulder Right Shoulder ROM WFL No Flexion 142 Extension 140 Abduction 140 Internal Rotation Behind Back (text) posterior hip left Shoulder ROM WFL Yes Internal Rotation Behind Back (text) T7 Elbow/Forearm Range of Motion Elbow/Forearm oralia Elbow/Forearm ROM WFL Yes PT-OP-L Special Tests Start: 10/30/23 08:13 Freq: Status: Active Protocol: Document 10/30/23 08:13 SAK (Rec: 11/03/23 08:48 [facility] [id number]) Special Tests Shoulder Special Tests [place] Impingement Test Results + Elevation Impingement Test Results + Drop Arm Rotator Cuff Test Results + inc pain Belly Press Test Results + inc pain PT-OP-M Strength Start: 10/30/23 08:13 Freq: Status: Active Protocol: Document 10/30/23 08:13 SAK (Rec: 11/03/23 08:48 [facility] [id number]) Shoulder Strength Shoulder Manual Muscle Testing Right Flexion 4+ Good+ Extension 4+ Good+ Abduction (C5) 5 Normal Adduction 4 Good External Rotation 4 Good Internal Rotation 4 Good Horizontal Abduction 4 Good Comments lower trap 3-/5 Left Flexion 5 Normal Extension 5 Normal Abduction (C5) 5 Normal Adduction 5 Normal External Rotation 4+ Good+ Internal Rotation 4+ Good+ Horizontal Abduction 5 Normal Elbow/Forearm Strength Elbow and Forearm Manual Muscle Testing oralia Flexion (C6) 5 Normal Extension (C7) 5 Normal PT-OP-Q Treatments Start: 10/30/23 08:13 Freq: Status: Active Protocol: Document 11/28/23 08:10 AB (Rec: 11/28/23 10:50 AB [id number]) Therapeutic Exercises Supine Exercises shoulder IR AROM Side right Reps/Minutes X15 Comments Pt ed use of self tactile cues Prone Exercises prone Y,T's Prone Exercise Name Ys only Resistance 1 lb Reps/Minutes 2X15 Comments monitored for pain Sidelying Exercises shoulder ER Side right Reps/Minutes X15 Comments verbal and tacile cues Sitting Exercises short sit to upright Side bilateral Reps/Minutes 2x X 2 Comments not jeannie, verbal cues, monitored for pain Standing Exercises statue of liberty Side right Resistance yellow therabar Reps/Minutes less than 30 sec Comments not jeannie push up plus Reps/Minutes X1 Comments not jeannie high row Resistance level 3 green band Reps/Minutes X15 Comments verbal and visual cues standing pec stretch Reps/Minutes X2 60 sec row Side bilateral Equipment Used level 3 green band Reps/Minutes 15 X2 Comments verbal and visual cues for row vs triceps/elbow extension Manual Therapy Treatment Soft Tissue Mobilization right shoulder Body Location pec, post cuff, UT and levator scap Mobilization Type Cross-Friction,Rolling, Sustained Pressure Intensity/Depth Moderate Body Position Hooklying Comments and sidelying Joint Mobilizations scapular mobilization Joint right Direction into depression and adduction Grade III Body Position Sidelying Reps/Duration X10 each GH right Direction ap and inf Grade IV Body Position Hooklying Reps/Duration X10 X2 PT-OP-T Assessment and Plan Start: 10/30/23 08:13 Freq: Status: Active Protocol: Document 11/28/23 08:10 AB (Rec: 11/28/23 10:50 AB [id number]) Physical Therapy Assessment Goals Three Impairment posterior chain and RC weakness Short Term Goal (STG) Patient to be instructed in individualized, progressive HEP for purposes of posterior chain and RC strengthening STG Duration 11/30/23 Weight Recorder Goal (LTG) Patient to demonstrate 5/5 muscle strength right shoulder for improved shoulder function LTG Duration 01/30/24 Two Impairment postural impairment Impairment moderate rounded shoulder posture with shoulder IR and scapular protraction Short Term Goal (STG) Patient to be instructed neutral posture for shoulder function and be instructed in postural correction exercises and activities STG Duration 11/30/23 Detention Goal (LTG) Patient to be able to demonstrate good postural awareness and ability to self- correct without cues and be independnet and compliant with postural correction exercises and activities LTG Duration 01/30/24 One Impairment activity tolerance Impairment Quickdash UE disability index score 32% impacting ADL's,work , and recreation Short Term Goal (STG) Decrease Quickdash score to no greater than 20% STG Duration 11/30/23 Detention Goal (LTG) Decrease Quickdash score to no greater than 5% as measure of improved activity tolerance with ADL's, work, and recreational activities including ability to reach overhead and behind his back without pain. LTG Duration 01/30/24 Assessment Summary Assessment 153 deg AROM right shoulder flexion end of session with patient rating pain 2/10. Patient reports a little pain with weight bearing ex/ wall push up and short sit and discomfort with rhythmic stablization/modified statue of liberty. Physical Therapy Plan Frequency and Duration Frequency of Treatment 2x/Week Duration of treatment (weeks) 12 Plan of Care Start Date 10/30/23 Plan of Care End Date 01/30/24 Next Visit Focus/Plan Next Note Type Treatment Note Next Visit Plan next session trial further education in neutral posture, RC/possibly revisit mini band and focus on posterior chain strengthening including I's, possibly starting supine over foam roller, progress to prone with resistance. Modalities and manual therapy PRN, assess jeannie to weight bearing push up plus on wall
--- NOTE | 2023-12-09 17:05 | PT.OTN ---
Current Diagnoses Pain in right shoulder (12/09/23) Abnormal posture (12/09/23) Weakness (12/09/23) Strain of muscle and tendon of front wall of thorax, initial encounter (12/09/23) Physical Therapy Treatment Note PT-OP-A Visit Information Start: 10/30/23 08:13 Freq: Status: Active Protocol: Document 12/09/23 10:33 SAK (Rec: 12/09/23 11:18 SAK [id number]) Out-Patient Physical Therapy Visit Information Visit Information Visit Type Treatment Note Visit Start Time 10:34 Visit Stop Time 11:18 Visit Number 6 Number of TRAINING AND DEVELOPMENT DIRECTOR Visits 0 Evaluation Information Evaluation Date 10/30/23 PT-OP-B Current Condition Start: 10/30/23 08:13 Freq: Status: Active Protocol: Document 10/30/23 08:13 SAK (Rec: 10/30/23 09:03 SAK [id number]) Current Condition History of Current Condition Onset Date 6 months Current Complaints right shoulder pain History of Current Condition first experienced pain when bench pressing 140 lbs; gradually noticing, 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 Has't gotten better even with rest, cant reach behind back, painful lifting overhead. 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 Painful to sleep on right side. now painful picking up his 60 lb daughter Prior Treatments and Tests Ice, heat; didn't help much. Future Testing and Treatments Planned return to Dr. Barahona Treatment Goals Patient/Caregiver Goals Return to full active use of right arm. Prior Functional Status Baseline Function- ADL's Independent Baseline Function- Mobility Independent Baseline Function- Work/School no pain Baseline Function- Recreation/Hobbies no pain Current Functional Impairments (Reported) Functional Limitations- ADL's painful reaching overhead and behind his back Functional Limitations- Work/School painful to reach overhead and behind his back Functional Limitations- Recreation/ painful to reach overhead and Hobbies behind his back PT-OP-C Subjective Start: 10/30/23 08:13 Freq: Status: Active Protocol: Document 12/09/23 10:33 SAK (Rec: 12/09/23 11:18 SAK [id number]) OP-PT Subjective Patient Comments Patient Comments LIfting his daughter has been a lot better, still difficulty pushing up in bed, closing sliding glass door, doing quick movements, but overall feels he continues to improve. Saw massage therapist who worked out a big knot under his shoulder blade. PT-OP-H Neuro Start: 10/30/23 08:13 Freq: Status: Active Protocol: Document 10/30/23 08:13 SAK (Rec: 10/30/23 09:03 [facility] [id number]) Sensation Evaluation Gross Sensation Gross Sensation WNL PT-OP-J Posture/Palpation/Skin Start: 10/30/23 08:13 Freq: Status: Active Protocol: Document 10/30/23 08:13 SAK (Rec: 10/30/23 09:03 [facility] [id number]) Posture Evaluation Position Sitting Head/C-Spine Posture Forward Head T-Spine Posture Increased Kyphosis Scapula Posture (L) Protracted,(R) Protracted Arm Posture (L) Internally Rotated,(R) Internally Rotated Palpation Assessment Location RC Palpation Findings Tenderness PT-OP-K Range of Motion Start: 10/30/23 08:13 Freq: Status: Active Protocol: Document 10/30/23 08:13 SAK (Rec: 10/30/23 09:03 [facility] [id number]) Cervical Spine Range of Motion Cervical Spine Active Comments WNL Shoulder Goniometric Range of Motion Shoulder Right Shoulder ROM WFL No Flexion 142 Extension 140 Abduction 140 Internal Rotation Behind Back (text) posterior hip left Shoulder ROM WFL Yes Internal Rotation Behind Back (text) T7 Elbow/Forearm Range of Motion Elbow/Forearm oralia Elbow/Forearm ROM WFL Yes PT-OP-L Special Tests Start: 10/30/23 08:13 Freq: Status: Active Protocol: Document 10/30/23 08:13 SAK (Rec: 11/03/23 08:48 [facility] [id number]) Special Tests Shoulder Special Tests [place] Impingement Test Results + Elevation Impingement Test Results + Drop Arm Rotator Cuff Test Results + inc pain Belly Press Test Results + inc pain PT-OP-M Strength Start: 10/30/23 08:13 Freq: Status: Active Protocol: Document 10/30/23 08:13 SAK (Rec: 11/03/23 08:48 [facility] [id number]) Shoulder Strength Shoulder Manual Muscle Testing Right Flexion 4+ Good+ Extension 4+ Good+ Abduction (C5) 5 Normal Adduction 4 Good External Rotation 4 Good Internal Rotation 4 Good Horizontal Abduction 4 Good Comments lower trap 3-/5 Left Flexion 5 Normal Extension 5 Normal Abduction (C5) 5 Normal Adduction 5 Normal External Rotation 4+ Good+ Internal Rotation 4+ Good+ Horizontal Abduction 5 Normal Elbow/Forearm Strength Elbow and Forearm Manual Muscle Testing oralia Flexion (C6) 5 Normal Extension (C7) 5 Normal PT-OP-Q Treatments Start: 10/30/23 08:13 Freq: Status: Active Protocol: Document 12/09/23 10:33 [facility] (Rec: 12/09/23 11:18 [facility] [id number]) Cardio Equipment Upper Body Ergometer (UBE) Duration (Minutes) 6 RPM 60 Seat Position 11 Height 3.5 Other mild (07/02 soreness) Gym Equipment Cable Column (Body Solid) scap shrug Details next session (on lat pull) lat pull Details next session Therapeutic Exercises Supine Exercises shoulder IR AROM Side right Reps/Minutes X15 Comments review alternating UE flexion on foam roller Supine Exercise Name black foam roller Side bilateral Reps/Minutes X15 Comments 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 Supine Exercise Name on soft foam roller Side bilateral Reps/Minutes 2 minutes Comments verbal cues Sidelying Exercises scap clocks Sidelying Exercise Name 9, 8, 7 Side right Resistance manual resistance Reps/Minutes 10x Comments verbal and tactile cues shoulder ER Side right Resistance 2# Reps/Minutes X15 Comments verbal and tacile cues Standing Exercises side plank Standing Exercise Name small angle moving toward ability to push up laterally Equipment Used wall Comments domo and with elbow flex/ext as jeannie high row Resistance level 3 green band Reps/Minutes X15 Comments verbal and visual cues row Side bilateral Equipment Used level 3 green band Reps/Minutes 15 X2 Comments verbal and visual cues for row for emphasis scapular motion Manual Therapy Treatment Joint Mobilizations scapular mobilization Joint right Direction into depression and adduction Grade III Body Position Sidelying Reps/Duration X10 each Taping right shoulder Body Location Pt ed to remove tape in 3-5 days or immediately if skin irritation occurs. Treatment Focus posture and dec UT/levator scap activation Type of Tape Kinesio Tape Skin Inspection WNL Comments T10 to ant should 75% stretch Levator scap with scap depression and UT with CS sidebend left, insertion back to origin PT-OP-T Assessment and Plan Start: 10/30/23 08:13 Freq: Status: Active Protocol: Document 12/09/23 10:33 [facility] (Rec: 12/09/23 11:18 SAK [id number]) Physical Therapy Assessment Goals Three Impairment posterior chain and RC weakness Short Term Goal (STG) Patient to be instructed in individualized, progressive HEP for purposes of posterior chain and RC strengthening STG Duration 11/30/23 Cabinet Finisher Goal (LTG) Patient to demonstrate 5/5 muscle strength right shoulder for improved shoulder function LTG Duration 01/30/24 Two Impairment postural impairment Impairment moderate rounded shoulder posture with shoulder IR and scapular protraction Short Term Goal (STG) Patient to be instructed neutral posture for shoulder function and be instructed in postural correction exercises and activities STG Duration 11/30/23 Group Home Goal (LTG) Patient to be able to demonstrate good postural awareness and ability to self- correct without cues and be independnet and compliant with postural correction exercises and activities LTG Duration 01/30/24 One Impairment activity tolerance Impairment Quickdash UE disability index score 32% impacting ADL's,work , and recreation Short Term Goal (STG) Decrease Quickdash score to no greater than 20% STG Duration 11/30/23 Group Home Goal (LTG) Decrease Quickdash score to no greater than 5% as measure of improved activity tolerance with ADL's, work, and recreational activities including ability to reach overhead and behind his back without pain. LTG Duration 01/30/24 Assessment Summary Assessment Patient improving function but with limitations especially movement of closing sliding door and push self up from bed as well as quick motions. He demonstrates poor scapular activation and control, some improvement with verbal and tactile cues, scap clocks, will need further work on scapular mechanics and stab. Physical Therapy Plan Frequency and Duration Frequency of Treatment 2x/Week Duration of treatment (weeks) 12 Plan of Care Start Date 10/30/23 Plan of Care End Date 01/30/24 Therapeutic Interventions Therapeutic Interventions Home Exercise Program,Joint Mobilizations,Manual Therapy, Neuromuscular Re-education, Patient/Caregiver Education, Self-Care/Home Management,Soft Tissue Mobilization,Taping, Therapeutic Activities, Therapeutic Exercises Modalities Cold Pack/Ice Massage,Electric Stimulation,Hot Packs, Infrared Therapy,Iontophoresis ,Ultrasound Next Visit Focus/Plan Next Note Type Treatment Note Next Visit Plan Continue shoulder ROM and strengthening, emphasis on scapular activation and stab, functional movements.
--- NOTE | 2023-12-11 15:54 | PT.OTN ---
Current Diagnoses Pain in right shoulder (12/11/23) Abnormal posture (12/11/23) Weakness (12/11/23) Strain of muscle and tendon of front wall of thorax, initial encounter (12/11/23) Physical Therapy Treatment Note PT-OP-A Visit Information Start: 10/30/23 08:13 Freq: Status: Active Protocol: Document 12/11/23 09:47 SAK (Rec: 12/11/23 10:33 [facility] [id number]) Out-Patient Physical Therapy Visit Information Visit Information Visit Type Treatment Note Visit Start Time 09:47 Visit Stop Time 11:18 Visit Number 7 Number of PRECISION MACHINIST Visits 0 Evaluation Information Evaluation Date 10/30/23 PT-OP-B Current Condition Start: 10/30/23 08:13 Freq: Status: Active Protocol: Document 10/30/23 08:13 SAK (Rec: 10/30/23 09:03 SAK [id number]) Current Condition History of Current Condition Onset Date 6 months Current Complaints right shoulder pain History of Current Condition first experienced pain when bench pressing 140 lbs; 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 Has't gotten better even with rest, cant reach behind back, painful lifting overhead. 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 Painful to sleep on right side. now painful picking up his 60 lb daughter Prior Treatments and Tests Ice, heat; didn't help much. Future Testing and Treatments Planned return to Dr. Barahona Treatment Goals Patient/Caregiver Goals Return to full active use of right arm. Prior Functional Status Baseline Function- ADL's Independent Baseline Function- Mobility Independent Baseline Function- Work/School no pain Baseline Function- Recreation/Hobbies no pain Current Functional Impairments (Reported) Functional Limitations- ADL's painful reaching overhead and behind his back Functional Limitations- Work/School painful to reach overhead and behind his back Functional Limitations- Recreation/ painful to reach overhead and Hobbies behind his back PT-OP-C Subjective Start: 10/30/23 08:13 Freq: Status: Active Protocol: Document 12/11/23 09:47 SAK (Rec: 12/11/23 10:33 SAK [id number]) OP-PT Subjective Patient Comments Patient Comments Sore yesterday after PT, today better, seemed mostly muscle soreness. Surprises him how weak his scapular muscles are. Can do pullups, hangs without pain, stabilization exercises in PT fatiguing PT-OP-H Neuro Start: 10/30/23 08:13 Freq: Status: Active Protocol: Document 10/30/23 08:13 SAK (Rec: 10/30/23 09:03 [facility] [id number]) Sensation Evaluation Gross Sensation Gross Sensation WNL PT-OP-J Posture/Palpation/Skin Start: 10/30/23 08:13 Freq: Status: Active Protocol: Document 10/30/23 08:13 SAK (Rec: 10/30/23 09:03 [facility] [id number]) Posture Evaluation Position Sitting Head/C-Spine Posture Forward Head T-Spine Posture Increased Kyphosis Scapula Posture (L) Protracted,(R) Protracted Arm Posture (L) Internally Rotated,(R) Internally Rotated Palpation Assessment Location RC Palpation Findings Tenderness PT-OP-K Range of Motion Start: 10/30/23 08:13 Freq: Status: Active Protocol: Document 10/30/23 08:13 SAK (Rec: 10/30/23 09:03 [facility] [id number]) Cervical Spine Range of Motion Cervical Spine Active Comments WNL Shoulder Goniometric Range of Motion Shoulder Right Shoulder ROM WFL No Flexion 142 Extension 140 Abduction 140 Internal Rotation Behind Back (text) posterior hip left Shoulder ROM WFL Yes Internal Rotation Behind Back (text) T7 Elbow/Forearm Range of Motion Elbow/Forearm oralia Elbow/Forearm ROM WFL Yes PT-OP-L Special Tests Start: 10/30/23 08:13 Freq: Status: Active Protocol: Document 10/30/23 08:13 SAK (Rec: 11/03/23 08:48 [facility] [id number]) Special Tests Shoulder Special Tests [place] Impingement Test Results + Elevation Impingement Test Results + Drop Arm Rotator Cuff Test Results + inc pain Belly Press Test Results + inc pain PT-OP-M Strength Start: 10/30/23 08:13 Freq: Status: Active Protocol: Document 10/30/23 08:13 SAK (Rec: 11/03/23 08:48 [facility] [id number]) Shoulder Strength Shoulder Manual Muscle Testing Right Flexion 4+ Good+ Extension 4+ Good+ Abduction (C5) 5 Normal Adduction 4 Good External Rotation 4 Good Internal Rotation 4 Good Horizontal Abduction 4 Good Comments lower trap 3-/5 Left Flexion 5 Normal Extension 5 Normal Abduction (C5) 5 Normal Adduction 5 Normal External Rotation 4+ Good+ Internal Rotation 4+ Good+ Horizontal Abduction 5 Normal Elbow/Forearm Strength Elbow and Forearm Manual Muscle Testing oralia Flexion (C6) 5 Normal Extension (C7) 5 Normal PT-OP-Q Treatments Start: 10/30/23 08:13 Freq: Status: Active Protocol: Document 12/11/23 09:47 [facility] (Rec: 12/11/23 10:33 [facility] [id number]) Cardio Equipment Upper Body Ergometer (UBE) Duration (Minutes) 6 RPM 60 Seat Position 11 Height 3.5 Other mild (07/02 soreness) Gym Equipment Cable Column (Body Solid) scap shrug Resistance 90,110 Reps/Time 10x2 lat pull Resistance 90,110 Reps/Time 10x2 Therapeutic Exercises Prone Exercises scap retraction Prone Exercise Name straight elbow Side right Reps/Minutes 10x2 Comments verbal and tactile cues plank serratus plus Reps/Minutes 10x2 Comments denied pain prone Y,T's Side right Reps/Minutes 10x2 Comments verbal and tactile cues; reported difficulty Y's but no pain Standing Exercises Body blade Standing Exercise Name oralia fwd, unil fwd, ir/er, statue liberty Equipment Used small, med, large Reps/Minutes 30 sec ea x 2 sets Comments fatiguing, started small warm up then 1 set med, 1 set lg isometric reactive shoulder IR and ER Standing Exercise Name sidestepping Side right Resistance L2, L3 Reps/Minutes X15 PT-OP-T Assessment and Plan Start: 10/30/23 08:13 Freq: Status: Active Protocol: Document 12/11/23 09:47 [facility] (Rec: 12/11/23 10:33 [facility] [id number]) Physical Therapy Assessment Goals Three Impairment posterior chain and RC weakness Short Term Goal (STG) Patient to be instructed in individualized, progressive HEP for purposes of posterior chain and RC strengthening 12/11/23: continue to progress and modify, partiallymet STG Duration 11/30/23 Care Home Goal (LTG) Patient to demonstrate 5/5 muscle strength right shoulder for improved shoulder function LTG Duration 01/30/24 Two Impairment postural impairment Impairment moderate rounded shoulder posture with shoulder IR and scapular protraction Short Term Goal (STG) Patient to be instructed neutral posture for shoulder function and be instructed in postural correction exercises and activities 12/11/23: goal met STG Duration 11/30/23 Gluer Goal (LTG) Patient to be able to demonstrate good postural awareness and ability to self- correct without cues and be independnet and compliant with postural correction exercises and activities LTG Duration 01/30/24 One Impairment activity tolerance Impairment Quickdash UE disability index score 32% impacting ADL's,work , and recreation Short Term Goal (STG) Decrease Quickdash score to no greater than 20% 12/11/23: goal progress, 24% STG Duration 11/30/23 Gluer Goal (LTG) Decrease Quickdash score to no greater than 5% as measure of improved activity tolerance with ADL's, work, and recreational activities including ability to reach overhead and behind his back without pain. LTG Duration 01/30/24 Progress Towards Goals Progress Towards Goals Progressing Toward Goals Assessment Summary Assessment Focus scapular stab today with patient reporting fatigue but min to no pain with ther ex. Updated written HO for HEP. Mod verbal and tactile cues for initiating movements by setting scapula, working in pain-free ROM. Able to do all 4's then plank serratus plus movement and lat pull scap shrug. Added Body blade with good tolerance. Physical Therapy Plan Frequency and Duration Frequency of Treatment 2x/Week Duration of treatment (weeks) 12 Plan of Care Start Date 10/30/23 Plan of Care End Date 01/30/24 Therapeutic Interventions Therapeutic Interventions Home Exercise Program,Joint Mobilizations,Manual Therapy, Neuromuscular Re-education, Patient/Caregiver Education, Self-Care/Home Management,Soft Tissue Mobilization,Taping, Therapeutic Activities, Therapeutic Exercises Modalities Cold Pack/Ice Massage,Electric Stimulation,Hot Packs, Infrared Therapy,Iontophoresis ,Ultrasound Next Visit Focus/Plan Next Note Type Treatment Note Next Visit Plan Continue shoulder ROM and strengthening, emphasis on scapular activation and stab, functional movements. Patient to be gone for work, resume PT when he returns.
--- NOTE | 2024-01-13 14:31 | PT-OP ANOTE ---
pt cancelled PT appointment
--- NOTE | 2024-01-27 12:54 | PT.OTN ---
Current Diagnoses Pain in right shoulder (01/27/24) Abnormal posture (01/27/24) Weakness (01/27/24) Strain of muscle and tendon of front wall of thorax, initial encounter (01/27/24) Physical Therapy Treatment Note PT-OP-A Visit Information Start: 10/30/23 08:13 Freq: Status: Active Protocol: Document 01/27/24 08:09 AB (Rec: 01/27/24 12:54 AB [id number]) Out-Patient Physical Therapy Visit Information Visit Information Visit Type Treatment Note Visit Start Time 09:49 Visit Stop Time 10:32 Visit Number 8 Number of CHEF & OWNER Visits 1 Evaluation Information Evaluation Date 10/30/23 PT-OP-B Current Condition Start: 10/30/23 08:13 Freq: Status: Active Protocol: Document 10/30/23 08:13 SAK (Rec: 10/30/23 09:03 SAK [id number]) Current Condition History of Current Condition Onset Date 6 months Current Complaints right shoulder pain History of Current Condition first experienced pain when bench pressing 140 lbs; 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 Has't gotten better even with rest, cant reach behind back, painful lifting overhead. 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 Painful to sleep on right side. now painful picking up his 60 lb daughter Prior Treatments and Tests Ice, heat; didn't help much. Future Testing and Treatments Planned return to Dr. Barahona Treatment Goals Patient/Caregiver Goals Return to full active use of right arm. Prior Functional Status Baseline Function- ADL's Independent Baseline Function- Mobility Independent Baseline Function- Work/School no pain Baseline Function- Recreation/Hobbies no pain Current Functional Impairments (Reported) Functional Limitations- ADL's painful reaching overhead and behind his back Functional Limitations- Work/School painful to reach overhead and behind his back Functional Limitations- Recreation/ painful to reach overhead and Hobbies behind his back PT-OP-C Subjective Start: 10/30/23 08:13 Freq: Status: Active Protocol: Document 01/27/24 08:09 AB (Rec: 01/27/24 12:54 AB [id number]) OP-PT Subjective Patient Comments Patient Comments Patient reports he can do push ups without pain, but does get an ache. Patient reports clavicle on right is raised. AROM right shoulder flexion 145 deg. PT-OP-H Neuro Start: 10/30/23 08:13 Freq: Status: Active Protocol: Document 10/30/23 08:13 SAK (Rec: 10/30/23 09:03 [facility] [id number]) Sensation Evaluation Gross Sensation Gross Sensation WNL PT-OP-J Posture/Palpation/Skin Start: 10/30/23 08:13 Freq: Status: Active Protocol: Document 10/30/23 08:13 SAK (Rec: 10/30/23 09:03 SAK [id number]) Posture Evaluation Position Sitting Head/C-Spine Posture Forward Head T-Spine Posture Increased Kyphosis Scapula Posture (L) Protracted,(R) Protracted Arm Posture (L) Internally Rotated,(R) Internally Rotated Palpation Assessment Location RC Palpation Findings Tenderness PT-OP-K Range of Motion Start: 10/30/23 08:13 Freq: Status: Active Protocol: Document 10/30/23 08:13 SAK (Rec: 10/30/23 09:03 [facility] [id number]) Cervical Spine Range of Motion Cervical Spine Active Comments WNL Shoulder Goniometric Range of Motion Shoulder Right Shoulder ROM WFL No Flexion 142 Extension 140 Abduction 140 Internal Rotation Behind Back (text) posterior hip left Shoulder ROM WFL Yes Internal Rotation Behind Back (text) T7 Elbow/Forearm Range of Motion Elbow/Forearm oralia Elbow/Forearm ROM WFL Yes PT-OP-L Special Tests Start: 10/30/23 08:13 Freq: Status: Active Protocol: Document 10/30/23 08:13 SAK (Rec: 11/03/23 08:48 [facility] [id number]) Special Tests Shoulder Special Tests [place] Impingement Test Results + Elevation Impingement Test Results + Drop Arm Rotator Cuff Test Results + inc pain Belly Press Test Results + inc pain PT-OP-M Strength Start: 10/30/23 08:13 Freq: Status: Active Protocol: Document 10/30/23 08:13 SAK (Rec: 11/03/23 08:48 [facility] [id number]) Shoulder Strength Shoulder Manual Muscle Testing Right Flexion 4+ Good+ Extension 4+ Good+ Abduction (C5) 5 Normal Adduction 4 Good External Rotation 4 Good Internal Rotation 4 Good Horizontal Abduction 4 Good Comments lower trap 3-/5 Left Flexion 5 Normal Extension 5 Normal Abduction (C5) 5 Normal Adduction 5 Normal External Rotation 4+ Good+ Internal Rotation 4+ Good+ Horizontal Abduction 5 Normal Elbow/Forearm Strength Elbow and Forearm Manual Muscle Testing oralia Flexion (C6) 5 Normal Extension (C7) 5 Normal PT-OP-Q Treatments Start: 10/30/23 08:13 Freq: Status: Active Protocol: Document 01/27/24 08:09 AB (Rec: 01/27/24 12:54 AB [id number]) Therapeutic Exercises Sidelying Exercises shoulder ER Side right Resistance 2# Reps/Minutes X15 X2 first set without band Sitting Exercises scalene stretch Sitting Exercise Name sidebend, holding the chair Side bilateral Reps/Minutes 30 to 60 seconds Standing Exercises scapular depression Side bilateral Equipment Used level 5 band Reps/Minutes X15 Comments verbal and visual cues standing pec stretch Standing Exercise Name at door Reps/Minutes X2 60 sec row Side bilateral Equipment Used level 5 green band Reps/Minutes 15 X2 Comments verbal and visual cues for row for emphasis scapular motion Manual Therapy Treatment Soft Tissue Mobilization right shoulder Body Location pec,Scalenes R lat clavicle, post cuff, UT and levator scap Mobilization Type Cross-Friction,Rolling, Sustained Pressure Intensity/Depth Moderate Body Position Hooklying Comments and sidelying Joint Mobilizations right AC joint Direction inf Grade III Reps/Duration X5 X 2 twice Comments pre and post manual scapular mobilization Joint right Direction into depression and adduction Grade III Body Position Sidelying Reps/Duration X10 each GH right Direction ap and inf Grade IV Body Position Hooklying Reps/Duration X10 X2 PT-OP-T Assessment and Plan Start: 10/30/23 08:13 Freq: Status: Active Protocol: Document 01/27/24 08:09 AB (Rec: 01/27/24 12:54 AB [id number]) Physical Therapy Assessment Goals Three Impairment posterior chain and RC weakness Short Term Goal (STG) Patient to be instructed in individualized, progressive HEP for purposes of posterior chain and RC strengthening 12/11/23: continue to progress and modify, partiallymet STG Duration 11/30/23 Custodial Goal (LTG) Patient to demonstrate 5/5 muscle strength right shoulder for improved shoulder function LTG Duration 01/30/24 Two Impairment postural impairment Impairment moderate rounded shoulder posture with shoulder IR and scapular protraction Short Term Goal (STG) Patient to be instructed neutral posture for shoulder function and be instructed in postural correction exercises and activities 12/11/23: goal met STG Duration 11/30/23 Mushroom Cutter Goal (LTG) Patient to be able to demonstrate good postural awareness and ability to self- correct without cues and be independnet and compliant with postural correction exercises and activities LTG Duration 01/30/24 One Impairment activity tolerance Impairment Quickdash UE disability index score 32% impacting ADL's,work , and recreation Short Term Goal (STG) Decrease Quickdash score to no greater than 20% 12/11/23: goal progress, 24% STG Duration 11/30/23 Mushroom Cutter Goal (LTG) Decrease Quickdash score to no greater than 5% as measure of improved activity tolerance with ADL's, work, and recreational activities including ability to reach overhead and behind his back without pain. LTG Duration 01/30/24 Assessment Summary Assessment AROM right shoulder flexion 155 deg end fo session rating pain right shoulder a 2-3/10 ache. Physical Therapy Plan Frequency and Duration Frequency of Treatment 2x/Week Duration of treatment (weeks) 12 Plan of Care Start Date 10/30/23 Plan of Care End Date 01/30/24 Next Visit Focus/Plan Next Note Type Treatment Note Next Visit Plan Continue shoulder ROM and strengthening, emphasis on scapular activation and stab, functional movements.
--- NOTE | 2024-01-27 16:36 | PT.OTRE ---
Current Diagnoses Pain in right shoulder (01/27/24) Abnormal posture (01/27/24) Weakness (01/27/24) Strain of muscle and tendon of front wall of thorax, initial encounter (01/27/24) Past Medical History (Last Updated 02/14/20 @ 11:47 by Kiesha De Oliveira PA-C) TMJ (temporomandibular joint syndrome) Visit Care Team Role Provider Type Lenin Clemons MD Attending Provider Physician Family Provider Primary Care Provider Referring Provider Specialty: [facility] Address: [facility] [place], [facility] Email: [email or web address] Physical Therapy Re-Evaluation PT-OP-A Visit Information Start: 10/30/23 08:13 Freq: Status: Active Protocol: Document 01/27/24 16:23 SAK (Rec: 01/27/24 16:34 SAK [id number]) Out-Patient Physical Therapy Visit Information Visit Information Visit Type Progress Note Evaluation Information Evaluation Date 10/30/23 PT-OP-B Current Condition Start: 10/30/23 08:13 Freq: Status: Active Protocol: Document 01/27/24 16:23 SAK (Rec: 01/27/24 16:34 SAK [id number]) Current Condition History of Current Condition Onset Date 6 months Current Complaints right shoulder pain History of Current Condition first experienced pain when bench pressing 140 lbs; 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 Has't gotten better even with rest, cant reach behind back, painful lifting overhead. 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 Painful to sleep on right side. now painful picking up his 60 lb daughter Prior Treatments and Tests Ice, heat; didn't help much. Future Testing and Treatments Planned return to Dr. Barahona PT-OP-C Subjective Start: 10/30/23 08:13 Freq: Status: Active Protocol: Document 01/27/24 08:09 AB (Rec: 01/27/24 12:54 AB [id number]) OP-PT Subjective Patient Comments Patient Comments Patient reports he can do push ups without pain, but does get an ache. Patient reports clavicle on right is raised. AROM right shoulder flexion 145 deg. PT-OP-H Neuro Start: 10/30/23 08:13 Freq: Status: Active Protocol: Document 10/30/23 08:13 SAK (Rec: 10/30/23 09:03 SAK [id number]) Sensation Evaluation Gross Sensation Gross Sensation WNL PT-OP-J Posture/Palpation/Skin Start: 10/30/23 08:13 Freq: Status: Active Protocol: Document 10/30/23 08:13 SAK (Rec: 10/30/23 09:03 SAK [id number]) Posture Evaluation Position Sitting Head/C-Spine Posture Forward Head T-Spine Posture Increased Kyphosis Scapula Posture (L) Protracted,(R) Protracted Arm Posture (L) Internally Rotated,(R) Internally Rotated Palpation Assessment Location RC Palpation Findings Tenderness PT-OP-K Range of Motion Start: 10/30/23 08:13 Freq: Status: Active Protocol: Document 10/30/23 08:13 SAK (Rec: 10/30/23 09:03 SAK [id number]) Cervical Spine Range of Motion Cervical Spine Active Comments WNL Shoulder Goniometric Range of Motion Shoulder Measured in Degrees Right Shoulder ROM WFL No Flexion 142 Extension 140 Abduction 140 Internal Rotation Behind Back (text) posterior hip left Shoulder ROM WFL Yes Internal Rotation Behind Back (text) T7 Elbow/Forearm Range of Motion Elbow/Forearm Measured in Degrees oralia Elbow/Forearm ROM WFL Yes PT-OP-L Special Tests Start: 10/30/23 08:13 Freq: Status: Active Protocol: Document 10/30/23 08:13 SAK (Rec: 11/03/23 08:48 [facility] [id number]) Special Tests Shoulder Special Tests [place] Impingement Test Results + Elevation Impingement Test Results + Drop Arm Rotator Cuff Test Results + inc pain Belly Press Test Results + inc pain PT-OP-M Strength Start: 10/30/23 08:13 Freq: Status: Active Protocol: Document 10/30/23 08:13 SAK (Rec: 11/03/23 08:48 SAK [id number]) Shoulder Strength Shoulder Manual Muscle Testing Right Flexion 4+ Good+ Extension 4+ Good+ Abduction (C5) 5 Normal Adduction 4 Good External Rotation 4 Good Internal Rotation 4 Good Horizontal Abduction 4 Good Comments lower trap 3-/5 Left Flexion 5 Normal Extension 5 Normal Abduction (C5) 5 Normal Adduction 5 Normal External Rotation 4+ Good+ Internal Rotation 4+ Good+ Horizontal Abduction 5 Normal Elbow/Forearm Strength Elbow and Forearm Manual Muscle Testing oralia Flexion (C6) 5 Normal Extension (C7) 5 Normal PT-OP-Q Treatments Start: 10/30/23 08:13 Freq: Status: Active Protocol: Document 01/27/24 08:09 AB (Rec: 01/27/24 12:54 AB [id number]) Therapeutic Exercises Sidelying Exercises shoulder ER Side right Resistance 2# Reps/Minutes X15 X2 first set without band Sitting Exercises scalene stretch Sitting Exercise Name sidebend, holding the chair Side bilateral Reps/Minutes 30 to 60 seconds Standing Exercises scapular depression Side bilateral Equipment Used level 5 band Reps/Minutes X15 Comments verbal and visual cues standing pec stretch Standing Exercise Name at door Reps/Minutes X2 60 sec row Side bilateral Equipment Used level 5 green band Reps/Minutes 15 X2 Comments verbal and visual cues for row for emphasis scapular motion Manual Therapy Treatment Soft Tissue Mobilization right shoulder Body Location pec,Scalenes R lat clavicle, post cuff, UT and levator scap Mobilization Type Cross-Friction,Rolling, Sustained Pressure Intensity/Depth Moderate Body Position Hooklying Comments and sidelying Joint Mobilizations right AC joint Direction inf Grade III Reps/Duration X5 X 2 twice Comments pre and post manual scapular mobilization Joint right Direction into depression and adduction Grade III Body Position Sidelying Reps/Duration X10 each GH right Direction ap and inf Grade IV Body Position Hooklying Reps/Duration X10 X2 PT-OP-T Assessment and Plan Start: 10/30/23 08:13 Freq: Status: Active Protocol: Document 01/27/24 16:23 [facility] (Rec: 01/27/24 16:34 [facility] [id number]) Physical Therapy Assessment Goals Three Impairment posterior chain and RC weakness Short Term Goal (STG) Patient to be instructed in individualized, progressive HEP for purposes of posterior chain and RC strengthening 12/11/23: continue to progress and modify, partiallymet 01/27/24: goal met STG Duration goal met Hole Digger Goal (LTG) Patient to demonstrate 5/5 muscle strength right shoulder for improved shoulder function 01/27/24: not fully met due to pain with resistance LTG Duration 03/28/24 Two Impairment postural impairment Impairment moderate rounded shoulder posture with shoulder IR and scapular protraction Short Term Goal (STG) Patient to be instructed neutral posture for shoulder function and be instructed in postural correction exercises and activities 12/11/23: goal met STG Duration goal met Long-Term Goal (LTG) Patient to be able to demonstrate good postural awareness and ability to self- correct without cues and be independnet and compliant with postural correction exercises and activities 01/27/24: patient still needing some verbal and tactile cues but improved LTG Duration 03/28/24 One Impairment activity tolerance Impairment Quickdash UE disability index score 32% impacting ADL's,work , and recreation Short Term Goal (STG) Decrease Quickdash score to no greater than 20% 12/11/23: goal progress, 24% 01/30/24: not done today. Patient continues to have difficulty reaching overhead, behind his back, and participating in recreastional activities. Right shoulder elevation end of PT session 155 degrees. STG Duration 02/27/24 Long-Term Goal (LTG) Decrease Quickdash score to no greater than 5% as measure of improved activity tolerance with ADL's, work, and recreational activities including ability to reach overhead and behind his back without pain. LTG Duration 03/31/24 Assessment Summary Assessment Patient reports continued pain , can only elevate his right UE to 155 degrees and reporting his pain 2-3/10. He has had 8 PT appointments over the past 3 months and has been highly motivated and compliant to his HEP. Although he has made some progress toward goals he continues to have pain and difficuty with reaching overhead and behind his back, and is limited in his work and recreational activities, as well as ADL's. Pinching pain right AC joint and some impingment symptoms. Feel further imaging may be indicated for this patient Physical Therapy Plan Frequency and Duration Frequency of Treatment 2x/Week Duration of treatment (weeks) 8 Plan of Care Start Date 01/27/24 Plan of Care End Date 03/28/24 Next Visit Focus/Plan Next Note Type Treatment Note Next Visit Plan Continue shoulder ROM and strengthening, emphasis on scapular activation and stab, functional movements per POC. Recommend further imaging of his right shoulder
--- NOTE | 2024-01-27 16:36 | PT.OPPOC ---
Physical, Occupational & Speech Therapy At [facility] Current Diagnoses Pain in right shoulder (01/27/24) Abnormal posture (01/27/24) Weakness (01/27/24) Strain of muscle and tendon of front wall of thorax, initial encounter (01/27/24) Visit Care Team Role Provider Type Lenin Clemons MD Attending Provider Physician Family Provider Primary Care Provider Referring Provider Specialty: Family Practice Address: [facility] [place], [place], [facility] Email: [email or web address] Plan Of Care PT-OP-B Current Condition Start: 10/30/23 08:13 Freq: Status: Active Protocol: Document 01/27/24 16:23 SAK (Rec: 01/27/24 16:34 [facility] [id number]) Current Condition History of Current Condition Onset Date 6 months Current Complaints right shoulder pain History of Current Condition first experienced pain when bench pressing 140 lbs; 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 Has't gotten better even with rest, cant reach behind back, painful lifting overhead. 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 Painful to sleep on right side. now painful picking up his 60 lb daughter Prior Treatments and Tests Ice, heat; didn't help much. Future Testing and Treatments Planned return to Dr. Barahona PT-OP-T Assessment and Plan Start: 10/30/23 08:13 Freq: Status: Active Protocol: Document 01/27/24 16:23 SAK (Rec: 01/27/24 16:34 [facility] [id number]) Physical Therapy Assessment Goals Three Impairment posterior chain and RC weakness Short Term Goal (STG) Patient to be instructed in individualized, progressive HEP for purposes of posterior chain and RC strengthening 12/11/23: continue to progress and modify, partiallymet 01/27/24: goal met STG Duration goal met Usp Goal (LTG) Patient to demonstrate 5/5 muscle strength right shoulder for improved shoulder function 01/27/24: not fully met due to pain with resistance LTG Duration 03/28/24 Two Impairment postural impairment Impairment moderate rounded shoulder posture with shoulder IR and scapular protraction Short Term Goal (STG) Patient to be instructed neutral posture for shoulder function and be instructed in postural correction exercises and activities 12/11/23: goal met STG Duration goal met Hhas Goal (LTG) Patient to be able to demonstrate good postural awareness and ability to self- correct without cues and be independnet and compliant with postural correction exercises and activities 01/27/24: patient still needing some verbal and tactile cues but improved LTG Duration 03/28/24 One Impairment activity tolerance Impairment Quickdash UE disability index score 32% impacting ADL's,work , and recreation Short Term Goal (STG) Decrease Quickdash score to no greater than 20% 12/11/23: goal progress, 24% 01/30/24: not done today. Patient continues to have difficulty reaching overhead, behind his back, and participating in recreastional activities. Right shoulder elevation end of PT session 155 degrees. STG Duration 02/27/24 Usp Goal (LTG) Decrease Quickdash score to no greater than 5% as measure of improved activity tolerance with ADL's, work, and recreational activities including ability to reach overhead and behind his back without pain. LTG Duration 03/31/24 Assessment Summary Assessment Patient reports continued pain , can only elevate his right UE to 155 degrees and reporting his pain 2-3/10. He has had 8 PT appointments over the past 3 months and has been highly motivated and compliant to his HEP. Although he has made some progress toward goals he continues to have pain and difficuty with reaching overhead and behind his back, and is limited in his work and recreational activities, as well as ADL's. Pinching pain right AC joint and some impingment symptoms. Feel further imaging may be indicated for this patient Physical Therapy Plan Frequency and Duration Frequency of Treatment 2x/Week Duration of treatment (weeks) 8 Plan of Care Start Date 01/27/24 Plan of Care End Date 03/28/24 Next Visit Focus/Plan Next Note Type Treatment Note Next Visit Plan Continue shoulder ROM and strengthening, emphasis on scapular activation and stab, functional movements per POC. Recommend further imaging of his right shoulder Plan of Care Dates Plan of Care Start Date 01/27/24 Plan of Care End Date 03/28/24 Electronically Signed by: Sharita Haider, PT 01/27/24 [id number] If you are in agreement with this Plan of Care, please return a signed and dated copy. I have reviewed this Plan of Care and certify that the skilled therapy services above are required to meet the patient?s needs. Physician Signature Date Printed Name and Credentials Clinical Instructor Signature Printed Name and Credentials
--- NOTE | 2024-02-12 16:21 | PT.OTN ---
Current Diagnoses Pain in right shoulder (02/12/24) Abnormal posture (02/12/24) Weakness (02/12/24) Strain of muscle and tendon of front wall of thorax, initial encounter (02/12/24) Physical Therapy Treatment Note PT-OP-A Visit Information Start: 10/30/23 08:13 Freq: Status: Active Protocol: Document 02/12/24 09:48 AB (Rec: 02/12/24 16:21 AB [id number]) Out-Patient Physical Therapy Visit Information Visit Information Visit Type Treatment Note Visit Start Time 09:48 Visit Stop Time 10:34 Visit Number 9 Number of ACTUARY MANAGER Visits 2 Evaluation Information Evaluation Date 10/30/23 PT-OP-B Current Condition Start: 10/30/23 08:13 Freq: Status: Active Protocol: Document 01/27/24 16:23 SAK (Rec: 01/27/24 16:34 SAK [id number]) Current Condition History of Current Condition Onset Date 6 months Current Complaints right shoulder pain History of Current Condition first experienced pain when bench pressing 140 lbs; 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 Has't gotten better even with rest, cant reach behind back, painful lifting overhead. 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 Painful to sleep on right side. now painful picking up his 60 lb daughter Prior Treatments and Tests Ice, heat; didn't help much. Future Testing and Treatments Planned return to Dr. Barahona PT-OP-C Subjective Start: 10/30/23 08:13 Freq: Status: Active Protocol: Document 02/12/24 09:48 AB (Rec: 02/12/24 16:21 AB [id number]) OP-PT Subjective Patient Comments Patient Comments Patient reports he is able to do push ups, but not with arms out due to pain. PT-OP-H Neuro Start: 10/30/23 08:13 Freq: Status: Active Protocol: Document 10/30/23 08:13 SAK (Rec: 10/30/23 09:03 SAK [id number]) Sensation Evaluation Gross Sensation Gross Sensation WNL PT-OP-J Posture/Palpation/Skin Start: 10/30/23 08:13 Freq: Status: Active Protocol: Document 10/30/23 08:13 SAK (Rec: 10/30/23 09:03 SAK [id number]) Posture Evaluation Position Sitting Head/C-Spine Posture Forward Head T-Spine Posture Increased Kyphosis Scapula Posture (L) Protracted,(R) Protracted Arm Posture (L) Internally Rotated,(R) Internally Rotated Palpation Assessment Location RC Palpation Findings Tenderness PT-OP-K Range of Motion Start: 10/30/23 08:13 Freq: Status: Active Protocol: Document 10/30/23 08:13 SAK (Rec: 10/30/23 09:03 SAK [id number]) Cervical Spine Range of Motion Cervical Spine Active Comments WNL Shoulder Goniometric Range of Motion Shoulder Right Shoulder ROM WFL No Flexion 142 Extension 140 Abduction 140 Internal Rotation Behind Back (text) posterior hip left Shoulder ROM WFL Yes Internal Rotation Behind Back (text) T7 Elbow/Forearm Range of Motion Elbow/Forearm oralia Elbow/Forearm ROM WFL Yes PT-OP-L Special Tests Start: 10/30/23 08:13 Freq: Status: Active Protocol: Document 10/30/23 08:13 SAK (Rec: 11/03/23 08:48 SAK [id number]) Special Tests Shoulder Special Tests [place] Impingement Test Results + Elevation Impingement Test Results + Drop Arm Rotator Cuff Test Results + inc pain Belly Press Test Results + inc pain PT-OP-M Strength Start: 10/30/23 08:13 Freq: Status: Active Protocol: Document 10/30/23 08:13 SAK (Rec: 11/03/23 08:48 SAK [id number]) Shoulder Strength Shoulder Manual Muscle Testing Right Flexion 4+ Good+ Extension 4+ Good+ Abduction (C5) 5 Normal Adduction 4 Good External Rotation 4 Good Internal Rotation 4 Good Horizontal Abduction 4 Good Comments lower trap 3-/5 Left Flexion 5 Normal Extension 5 Normal Abduction (C5) 5 Normal Adduction 5 Normal External Rotation 4+ Good+ Internal Rotation 4+ Good+ Horizontal Abduction 5 Normal Elbow/Forearm Strength Elbow and Forearm Manual Muscle Testing oralia Flexion (C6) 5 Normal Extension (C7) 5 Normal PT-OP-Q Treatments Start: 10/30/23 08:13 Freq: Status: Active Protocol: Document 02/12/24 09:48 AB (Rec: 02/12/24 16:21 AB [id number]) Therapeutic Exercises Supine Exercises serratus punch Side bilateral Resistance 3# then 4# Reps/Minutes 15 X 2 Comments verbal cues X 15 each weight Sidelying Exercises open book Side bilateral Reps/Minutes X5 for 5 breaths Comments tactile cues for LE position, verbal cues for UE and breathing shoulder ER Side right Reps/Minutes X15 Standing Exercises shoulder ER/IR Standing Exercise Name AROM with band Side right Resistance level 2 Reps/Minutes X15 each Comments monitored for pain statue [place] Side right Resistance yellow therabar Reps/Minutes one min wall slide Standing Exercise Name facliliation at scapula Side right Reps/Minutes X10 Comments Verbal cues to step to wall, wall slide flex, then lift UE off wall and low standing pec stretch Standing Exercise Name at door HEP Side bilateral Reps/Minutes X2 60 sec Comments single arm 90/90 Other Exercises push up plus Other Exercise Name plank/pusHEP h up form on mat Reps/Minutes 2X10 Comments verbal cues for UE post, scap protraction and retraction Manual Therapy Treatment Soft Tissue Mobilization right shoulder Body Location pec,Scalenes R lat clavicle, post cuff, UT and levator scap Mobilization Type Cross-Friction,Rolling, Sustained Pressure Intensity/Depth Moderate Body Position Hooklying Comments and sidelying Joint Mobilizations right AC joint Direction inf Grade III Reps/Duration X5 X 2 twice Comments pre and post manual scapular mobilization Joint right Direction into depression and adduction Grade III Body Position Sidelying Reps/Duration X10 each GH right Direction ap and inf Grade IV Body Position Hooklying Reps/Duration X10 X2 Manual Techniques scapular isometrics Type depression and adduction Body Location right shoulder Body Position Sidelying Reps/Duration X10 each PT-OP-T Assessment and Plan Start: 10/30/23 08:13 Freq: Status: Active Protocol: Document 02/12/24 09:48 AB (Rec: 02/12/24 16:21 AB [id number]) Physical Therapy Assessment Goals Three Impairment posterior chain and RC weakness Short Term Goal (STG) Patient to be instructed in individualized, progressive HEP for purposes of posterior chain and RC strengthening 12/11/23: continue to progress and modify, partiallymet 01/27/24: goal met STG Duration goal met Halfway Goal (LTG) Patient to demonstrate 5/5 muscle strength right shoulder for improved shoulder function 01/27/24: not fully met due to pain with resistance LTG Duration 03/28/24 Two Impairment postural impairment Impairment moderate rounded shoulder posture with shoulder IR and scapular protraction Short Term Goal (STG) Patient to be instructed neutral posture for shoulder function and be instructed in postural correction exercises and activities 12/11/23: goal met STG Duration goal met Halfway Goal (LTG) Patient to be able to demonstrate good postural awareness and ability to self- correct without cues and be independnet and compliant with postural correction exercises and activities 01/27/24: patient still needing some verbal and tactile cues but improved LTG Duration 03/28/24 One Impairment activity tolerance Impairment Quickdash UE disability index score 32% impacting ADL's,work , and recreation Short Term Goal (STG) Decrease Quickdash score to no greater than 20% 12/11/23: goal progress, 24% 01/30/24: not done today. Patient continues to have difficulty reaching overhead, behind his back, and participating in recreastional activities. Right shoulder elevation end of PT session 155 degrees. STG Duration 02/27/24 Halfway Goal (LTG) Decrease Quickdash score to no greater than 5% as measure of improved activity tolerance with ADL's, work, and recreational activities including ability to reach overhead and behind his back without pain. LTG Duration 03/31/24 Assessment Summary Assessment Slight increase in AROM right shoulder flexion end of session. ROM not yet WNL, good jeannie to progression of pec stretch and able to perform push up plus in plank form/ie push up position on mat. Physical Therapy Plan Frequency and Duration Frequency of Treatment 2x/Week Duration of treatment (weeks) 8 Plan of Care Start Date 01/27/24 Plan of Care End Date 03/28/24 Next Visit Focus/Plan Next Note Type Treatment Note Next Visit Plan Continue shoulder ROM and strengthening, emphasis on scapular activation and stab, functional movements per POC. Recommend further imaging of his right shoulder
--- NOTE | 2024-02-18 14:59 | PT.OTN ---
Current Diagnoses Pain in right shoulder (02/18/24) Abnormal posture (02/18/24) Weakness (02/18/24) Strain of muscle and tendon of front wall of thorax, initial encounter (02/18/24) Physical Therapy Treatment Note PT-OP-A Visit Information Start: 10/30/23 08:13 Freq: Status: Active Protocol: Document 02/18/24 08:55 SAK (Rec: 02/18/24 09:[address] [facility] [id number]) Out-Patient Physical Therapy Visit Information Visit Information Visit Type Treatment Note Visit Start Time 09:00 Visit Stop Time 09:46 Visit Number 10 Number of SERVICES HOST Visits 0 Evaluation Information Evaluation Date 10/30/23 PT-OP-B Current Condition Start: 10/30/23 08:13 Freq: Status: Active Protocol: Document 02/18/24 08:55 SAK (Rec: 02/18/24 09:49 SAK [id number]) Current Condition History of Current Condition Onset Date 6 months Current Complaints right shoulder pain History of Current Condition first experienced pain when bench pressing 140 lbs; gradually noticing, went insole presser, 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 Has't gotten better even with rest, cant reach behind back, painful lifting overhead. 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 Painful to sleep on right side. now painful picking up his 60 lb daughter Prior Treatments and Tests Ice, heat; didn't help much. Future Testing and Treatments Planned return to Dr. Barahona PT-OP-C Subjective Start: 10/30/23 08:13 Freq: Status: Active Protocol: Document 02/18/24 08:55 SAK (Rec: 02/18/24 09:49 SAK [id number]) OP-PT Subjective Patient Comments Patient Comments Continued tightness in shoulder, can do push ups reg, not wide, can pick kiddos up. Not sharp pain but reaching behind and across body in front feels tight. Tight and painful reaching overhead for switches, painful throwing a ball. Pain level 0-3/10, pinching pain with reaching overhead, behind his back, across his body. Still very interested in obtaining imaging of his shoulder. PT-OP-H Neuro Start: 10/30/23 08:13 Freq: Status: Active Protocol: Document 10/30/23 08:13 SAK (Rec: 10/30/23 09:[address] [facility] [id number]) Sensation Evaluation Gross Sensation Gross Sensation WNL PT-OP-J Posture/Palpation/Skin Start: 10/30/23 08:13 Freq: Status: Active Protocol: Document 10/30/23 08:13 SAK (Rec: 10/30/23 09:03 SAK [id number]) Posture Evaluation Position Sitting Head/C-Spine Posture Forward Head T-Spine Posture Increased Kyphosis Scapula Posture (L) Protracted,(R) Protracted Arm Posture (L) Internally Rotated,(R) Internally Rotated Palpation Assessment Location RC Palpation Findings Tenderness PT-OP-K Range of Motion Start: 10/30/23 08:13 Freq: Status: Active Protocol: Document 02/18/24 08:55 SAK (Rec: 02/18/24 09:49 SAK [id number]) Shoulder Goniometric Range of Motion Shoulder Right Shoulder ROM WFL No Flexion 180 Extension 167 Abduction 140 Horizontal Abduction 30 Internal Rotation Behind Back (text) T7 PT-OP-L Special Tests Start: 10/30/23 08:13 Freq: Status: Active Protocol: Document 10/30/23 08:13 SAK (Rec: 11/03/23 08:[address] [facility] [id number]) Special Tests Shoulder Special Tests [place] Impingement Test Results + Elevation Impingement Test Results + Drop Arm Rotator Cuff Test Results + inc pain Belly Press Test Results + inc pain PT-OP-M Strength Start: 10/30/23 08:13 Freq: Status: Active Protocol: Document 10/30/23 08:13 SAK (Rec: 11/03/23 08:[address] [facility] [id number]) Shoulder Strength Shoulder Manual Muscle Testing Right Flexion 4+ Good+ Extension 4+ Good+ Abduction (C5) 5 Normal Adduction 4 Good External Rotation 4 Good Internal Rotation 4 Good Horizontal Abduction 4 Good Comments lower trap 3-/5 Left Flexion 5 Normal Extension 5 Normal Abduction (C5) 5 Normal Adduction 5 Normal External Rotation 4+ Good+ Internal Rotation 4+ Good+ Horizontal Abduction 5 Normal Elbow/Forearm Strength Elbow and Forearm Manual Muscle Testing oralia Flexion (C6) 5 Normal Extension (C7) 5 Normal PT-OP-Q Treatments Start: 10/30/23 08:13 Freq: Status: Active Protocol: Document 02/18/24 08:55 SAK (Rec: 02/18/24 09:[address] [facility] [id number]) Therapeutic Exercises Sidelying Exercises side plank Reps/Minutes 3x10 sec Comments fatigued rapidly on right with shaking, cues for alignment Standing Exercises shoulder ER/IR Standing Exercise Name throw motion, reverse throw Side right Resistance level 2 Reps/Minutes X10 each Comments monitored for pain Body blade Standing Exercise Name , unil fwd, ir/er, statue liberty Equipment Used large body blade Reps/Minutes 30 sec ea x 2 sets Comments fatiguing, started small warm up then 1 set med, 1 set lg Manual Therapy Treatment Soft Tissue Mobilization right shoulder Body Location pec,Scalenes R lat clavicle, post cuff, UT and levator scap Mobilization Type Cross-Friction,Rolling, Sustained Pressure Intensity/Depth Moderate Body Position Hooklying Comments and sidelying Joint Mobilizations right AC joint Direction inf Grade III Reps/Duration X5 X 2 twice scapular mobilization Joint right Direction into depression and adduction Grade III Body Position Sidelying Reps/Duration X10 each GH right Direction ap and inf Grade IV Body Position Hooklying Reps/Duration X10 X2 Manual Techniques scapular isometrics Type depression and adduction Body Location right shoulder Body Position Sidelying Reps/Duration X10 each Other Other Manual Treatments contract/relax to increase right shoulder IR supine followed by AROM into IR x 10 MMT and ROM assessment right shoulder. Mullins test positive right. Self-Care/Home Management Treatment Education Patient Education Home Exercise Program,Pain Management,Posture PT-OP-T Assessment and Plan Start: 10/30/23 08:13 Freq: Status: Active Protocol: Document 02/18/24 08:[address] [facility] (Rec: 02/18/24 09:[address] [facility] [id number]) Physical Therapy Assessment Goals Three Impairment posterior chain and RC weakness Short Term Goal (STG) Patient to be instructed in individualized, progressive HEP for purposes of posterior chain and RC strengthening 12/11/23: continue to progress and modify, partiallymet 01/27/24: goal met STG Duration goal met Casino Controller Goal (LTG) Patient to demonstrate 5/5 muscle strength right shoulder for improved shoulder function 01/27/24: not fully met due to pain with resistance LTG Duration 03/28/24 Two Impairment postural impairment Impairment moderate rounded shoulder posture with shoulder IR and scapular protraction Short Term Goal (STG) Patient to be instructed neutral posture for shoulder function and be instructed in postural correction exercises and activities 12/11/23: goal met STG Duration goal met Assisted Goal (LTG) Patient to be able to demonstrate good postural awareness and ability to self- correct without cues and be independnet and compliant with postural correction exercises and activities 01/27/24: patient still needing some verbal and tactile cues but improved LTG Duration 03/28/24 One Impairment activity tolerance Impairment Quickdash UE disability index score 32% impacting ADL's,work , and recreation Short Term Goal (STG) Decrease Quickdash score to no greater than 20% 12/11/23: goal progress, 24% 01/30/24: not done today. Patient continues to have difficulty reaching overhead, behind his back, and participating in recreastional activities. Right shoulder elevation end of PT session 155 degrees. STG Duration 02/27/24 Casino Controller Goal (LTG) Decrease Quickdash score to no greater than 5% as measure of improved activity tolerance with ADL's, work, and recreational activities including ability to reach overhead and behind his back without pain. LTG Duration 03/31/24 Progress Towards Goals Progress Towards Goals Progressing Toward Goals Assessment Summary Assessment Has made some good improvements in ROM and strength, progressed his HEP with fatigue but not inc in pain, issued updated HEP. Still feel imaging of his shoulder would be beneficial, x-ray first if hasn't had done , possible MRI given continued pain as well as clicking. Physical Therapy Plan Frequency and Duration Frequency of Treatment 2x/Week Duration of treatment (weeks) 8 Plan of Care Start Date 01/27/24 Plan of Care End Date 03/28/24 Therapeutic Interventions Therapeutic Interventions Home Exercise Program,Joint Mobilizations,Manual Therapy, Neuromuscular Re-education, Patient/Caregiver Education, Self-Care/Home Management,Soft Tissue Mobilization,Taping, Therapeutic Activities, Therapeutic Exercises Modalities Cold Pack/Ice Massage,Electric Stimulation,Hot Packs, Infrared Therapy,Iontophoresis ,Ultrasound Next Visit Focus/Plan Next Note Type Treatment Note Next Visit Plan Continue shoulder ROM and strengthening, emphasis on scapular activation and stab, functional movements per POC. Recommend further imaging of his right shoulder; called Dr. Clemons office and resent last POC note. Mullins test positive for possible labral involvement.
--- NOTE | 2024-03-02 11:19 | PT.OTN ---
Current Diagnoses Pain in right shoulder (03/02/24) Abnormal posture (03/02/24) Weakness (03/02/24) Strain of muscle and tendon of front wall of thorax, initial encounter (03/02/24) Physical Therapy Treatment Note PT-OP-A Visit Information Start: 10/30/23 08:13 Freq: Status: Active Protocol: Document 03/02/24 08:03 AB (Rec: 03/02/24 11:18 AB [id number]) Out-Patient Physical Therapy Visit Information Visit Information Visit Type Treatment Note Visit Note Access Code [email or web address] Visit Start Time 10:33 Visit Stop Time 11:13 Visit Number 11 Number of SHELL SORTER Visits 1 Evaluation Information Evaluation Date 10/30/23 PT-OP-B Current Condition Start: 10/30/23 08:13 Freq: Status: Active Protocol: Document 02/18/24 08:55 SAK (Rec: 02/18/24 09:49 SAK [id number]) Current Condition History of Current Condition Onset Date 6 months Current Complaints right shoulder pain History of Current Condition first experienced pain when bench pressing 140 lbs; 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 Has't gotten better even with rest, cant reach behind back, painful lifting overhead. 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 Painful to sleep on right side. now painful picking up his 60 lb daughter Prior Treatments and Tests Ice, heat; didn't help much. Future Testing and Treatments Planned return to Dr. Barahona PT-OP-C Subjective Start: 10/30/23 08:13 Freq: Status: Active Protocol: Document 03/02/24 08:03 AB (Rec: 03/02/24 11:18 AB [id number]) OP-PT Subjective Patient Comments Patient Comments Patient reports he should hear back today regarding insurance approval for imaging .AROM 151 deg AROM right shoulder flexion start of session. PT-OP-H Neuro Start: 10/30/23 08:13 Freq: Status: Active Protocol: Document 10/30/23 08:13 SAK (Rec: 10/30/23 09:03 SAK [id number]) Sensation Evaluation Gross Sensation Gross Sensation WNL PT-OP-J Posture/Palpation/Skin Start: 10/30/23 08:13 Freq: Status: Active Protocol: Document 10/30/23 08:13 SAK (Rec: 10/30/23 09:03 SAK [id number]) Posture Evaluation Position Sitting Head/C-Spine Posture Forward Head T-Spine Posture Increased Kyphosis Scapula Posture (L) Protracted,(R) Protracted Arm Posture (L) Internally Rotated,(R) Internally Rotated Palpation Assessment Location RC Palpation Findings Tenderness PT-OP-K Range of Motion Start: 10/30/23 08:13 Freq: Status: Active Protocol: Document 02/18/24 08:55 SAK (Rec: 02/18/24 09:49 SAK [id number]) Shoulder Goniometric Range of Motion Shoulder Right Shoulder ROM WFL No Flexion 180 Extension 167 Abduction 140 Horizontal Abduction 30 Internal Rotation Behind Back (text) T7 PT-OP-L Special Tests Start: 10/30/23 08:13 Freq: Status: Active Protocol: Document 10/30/23 08:13 SAK (Rec: 11/03/23 08:48 [facility] [id number]) Special Tests Shoulder Special Tests [place] Impingement Test Results + Elevation Impingement Test Results + Drop Arm Rotator Cuff Test Results + inc pain Belly Press Test Results + inc pain PT-OP-M Strength Start: 10/30/23 08:13 Freq: Status: Active Protocol: Document 10/30/23 08:13 SAK (Rec: 11/03/23 08:48 [facility] [id number]) Shoulder Strength Shoulder Manual Muscle Testing Right Flexion 4+ Good+ Extension 4+ Good+ Abduction (C5) 5 Normal Adduction 4 Good External Rotation 4 Good Internal Rotation 4 Good Horizontal Abduction 4 Good Comments lower trap 3-/5 Left Flexion 5 Normal Extension 5 Normal Abduction (C5) 5 Normal Adduction 5 Normal External Rotation 4+ Good+ Internal Rotation 4+ Good+ Horizontal Abduction 5 Normal Elbow/Forearm Strength Elbow and Forearm Manual Muscle Testing oralia Flexion (C6) 5 Normal Extension (C7) 5 Normal PT-OP-Q Treatments Start: 10/30/23 08:13 Freq: Status: Active Protocol: Document 03/02/24 08:03 AB (Rec: 03/02/24 11:18 AB [id number]) Therapeutic Exercises Supine Exercises serratus punch Side bilateral Resistance 4# Reps/Minutes 15 X 2 shoulder flexion Supine Exercise Name AROM Side bilateral Reps/Minutes X10 Comments verbal cues for 10 sec hold, monitored for pain alternating UE flexion on foam roller Supine Exercise Name blue foam roller Side bilateral Reps/Minutes X15 Comments Verbal cues chest dietitian assistant Side bilateral Reps/Minutes 3 min Comments VC for breathing from diaphgragm Sidelying Exercises side plank Reps/Minutes 3x10 sec Comments fatigued rapidly on right with shaking, cues for alignment Standing Exercises mini band Side bilateral Resistance level one band Reps/Minutes single thickness band X10 Comments Verbal cues, monitored for pain scapular depression Side bilateral Equipment Used level 5 band Reps/Minutes X15 Comments verbal and visual cues side plank Side bilateral Equipment Used wall Reps/Minutes 10 sec X 3 each side statue of liberty Side bilateral Resistance yellow therabar Reps/Minutes one min high row Resistance level 5 green band Reps/Minutes X15 Comments verbal and visual cues standing pec stretch Standing Exercise Name HEP Side bilateral Reps/Minutes X2 60 sec Comments single arm 90/90 row Side bilateral Equipment Used level 5 green band Reps/Minutes 15 X2 Comments verbal and visual cues for row for emphasis scapular motion Other Exercises shoulder taps Other Exercise Name HEP Side bilateral Reps/Minutes X10 Comments verbal cues Manual Therapy Treatment Soft Tissue Mobilization right shoulder Body Location pec,Scalenes R lat clavicle, post cuff, UT and levator scap Mobilization Type Cross-Friction,Rolling, Sustained Pressure Intensity/Depth Moderate Body Position Hooklying Comments and sidelying Joint Mobilizations scapular mobilization Joint right Direction into depression and adduction Grade III Body Position Sidelying Reps/Duration X10 each GH right Direction ap and inf Grade IV Body Position Hooklying Reps/Duration X10 X2 Manual Techniques lat and pin stretch Type left shoulder Body Position Sidelying Reps/Duration X10 PT-OP-T Assessment and Plan Start: 10/30/23 08:13 Freq: Status: Active Protocol: Document 03/02/24 08:03 AB (Rec: 03/02/24 11:18 AB [id number]) Physical Therapy Assessment Goals Three Impairment posterior chain and RC weakness Short Term Goal (STG) Patient to be instructed in individualized, progressive HEP for purposes of posterior chain and RC strengthening 12/11/23: continue to progress and modify, partiallymet 01/27/24: goal met STG Duration goal met Care Home Goal (LTG) Patient to demonstrate 5/5 muscle strength right shoulder for improved shoulder function 01/27/24: not fully met due to pain with resistance LTG Duration 03/28/24 Two Impairment postural impairment Impairment moderate rounded shoulder posture with shoulder IR and scapular protraction Short Term Goal (STG) Patient to be instructed neutral posture for shoulder function and be instructed in postural correction exercises and activities 12/11/23: goal met STG Duration goal met Mechanotherapist Goal (LTG) Patient to be able to demonstrate good postural awareness and ability to self- correct without cues and be independnet and compliant with postural correction exercises and activities 01/27/24: patient still needing some verbal and tactile cues but improved LTG Duration 03/28/24 One Impairment activity tolerance Impairment Quickdash UE disability index score 32% impacting ADL's,work , and recreation Short Term Goal (STG) Decrease Quickdash score to no greater than 20% 12/11/23: goal progress, 24% 01/30/24: not done today. Patient continues to have difficulty reaching overhead, behind his back, and participating in recreastional activities. Right shoulder elevation end of PT session 155 degrees. STG Duration 02/27/24 Care Home Goal (LTG) Decrease Quickdash score to no greater than 5% as measure of improved activity tolerance with ADL's, work, and recreational activities including ability to reach overhead and behind his back without pain. LTG Duration 03/31/24 Assessment Summary Assessment AROM right shoulder flexin 160 deg end of session with patient rating pain 1/10 right shoulder. Good tolerance to shoulder taps in plank position, plank and side plank exercises continue to be challenging as seen by muscle shaking throughout. Physical Therapy Plan Frequency and Duration Frequency of Treatment 2x/Week Duration of treatment (weeks) 8 Plan of Care Start Date 01/27/24 Plan of Care End Date 03/28/24 Next Visit Focus/Plan Next Note Type Treatment Note Next Visit Plan Continue shoulder ROM and strengthening, emphasis on scapular activation and stab, functional movements per POC. Recommend further imaging of his right shoulder; called Dr. Clemons office and resent last POC note. Mullins test positive for possible labral involvement.
--- NOTE | 2024-03-09 08:35 | PT-OP ANOTE ---
Phoned patient regarding no show. Patient comments he confirmed for later time this am. Patient made aware of no show policy ie charge and discharge from PT with 2 no shows. Patient given time and date of next appointment. 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
--- NOTE | 2024-03-16 11:42 | PT.OTN ---
Current Diagnoses Pain in right shoulder (03/16/24) Abnormal posture (03/16/24) Weakness (03/16/24) Strain of muscle and tendon of front wall of thorax, initial encounter (03/16/24) Physical Therapy Treatment Note PT-OP-A Visit Information Start: 10/30/23 08:13 Freq: Status: Active Protocol: Document 03/16/24 09:43 SAK (Rec: 03/16/24 10:34 [facility] [id number]) Out-Patient Physical Therapy Visit Information Visit Information Visit Type Treatment Note Visit Start Time 09:44 Visit Stop Time 10:31 Visit Number 12 Evaluation Information Evaluation Date 10/30/23 PT-OP-B Current Condition Start: 10/30/23 08:13 Freq: Status: Active Protocol: Document 02/18/24 08:55 SAK (Rec: 02/18/24 09:49 SAK [id number]) Current Condition History of Current Condition Onset Date 6 months Current Complaints right shoulder pain History of Current Condition first experienced pain when bench pressing 140 lbs; 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 Has't gotten better even with rest, cant reach behind back, painful lifting overhead. 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 Painful to sleep on right side. now painful picking up his 60 lb daughter Prior Treatments and Tests Ice, heat; didn't help much. Future Testing and Treatments Planned return to Dr. Barahona PT-OP-C Subjective Start: 10/30/23 08:13 Freq: Status: Active Protocol: Document 03/16/24 09:43 SAK (Rec: 03/16/24 10:34 SAK [id number]) OP-PT Subjective Patient Comments Patient Comments Most painful reaching across body to opp shoulder pain sharp top of shoulder otherwise generally 2/10 when uses arm. Reports 95% better than when first started PT. Got approved for MRI, had some paperwork issues, now referal can't be found, hopeful to get it soon. PT-OP-H Neuro Start: 10/30/23 08:13 Freq: Status: Active Protocol: Document 10/30/23 08:13 SAK (Rec: 10/30/23 09:03 SAK [id number]) Sensation Evaluation Gross Sensation Gross Sensation WNL PT-OP-J Posture/Palpation/Skin Start: 10/30/23 08:13 Freq: Status: Active Protocol: Document 10/30/23 08:13 SAK (Rec: 10/30/23 09:03 SAK [id number]) Posture Evaluation Position Sitting Head/C-Spine Posture Forward Head T-Spine Posture Increased Kyphosis Scapula Posture (L) Protracted,(R) Protracted Arm Posture (L) Internally Rotated,(R) Internally Rotated Palpation Assessment Location RC Palpation Findings Tenderness PT-OP-K Range of Motion Start: 10/30/23 08:13 Freq: Status: Active Protocol: Document 02/18/24 08:55 SAK (Rec: 02/18/24 09:49 SAK [id number]) Shoulder Goniometric Range of Motion Shoulder Right Shoulder ROM WFL No Flexion 180 Extension 167 Abduction 140 Horizontal Abduction 30 Internal Rotation Behind Back (text) T7 PT-OP-L Special Tests Start: 10/30/23 08:13 Freq: Status: Active Protocol: Document 10/30/23 08:13 SAK (Rec: 11/03/23 08:48 [facility] [id number]) Special Tests Shoulder Special Tests [place] Impingement Test Results + Elevation Impingement Test Results + Drop Arm Rotator Cuff Test Results + inc pain Belly Press Test Results + inc pain PT-OP-M Strength Start: 10/30/23 08:13 Freq: Status: Active Protocol: Document 03/16/24 09:43 SAK (Rec: 03/16/24 10:34 [facility] [id number]) Scapula Strength Scapula Manual Muscle Testing Right Elevation (C4) 5 Normal Adduction 4+ Good+ Abduction 4+ Good+ Depression 4+ Good+ Shoulder Strength Shoulder Manual Muscle Testing Right Flexion 4+ Good+ Extension 4+ Good+ Abduction (C5) 5 Normal Adduction 4 Good External Rotation 4 Good Internal Rotation 4 Good Horizontal Abduction 4 Good Comments lower trap 3-/5 Left Flexion 5 Normal Extension 5 Normal Abduction (C5) 5 Normal Adduction 5 Normal External Rotation 5 Normal Internal Rotation 5 Normal Horizontal Abduction 5 Normal Elbow/Forearm Strength Elbow and Forearm Manual Muscle Testing oralia Flexion (C6) 5 Normal Extension (C7) 5 Normal PT-OP-Q Treatments Start: 10/30/23 08:13 Freq: Status: Active Protocol: Document 03/16/24 09:43 SAK (Rec: 03/16/24 10:34 [facility] [id number]) Gym Equipment Shuttle Rebound throw Exercise Details 2# ball Reps/Duration 3x10 Comments cues for form, pain-free intensity, from 10 lb away Therapeutic Exercises Prone Exercises prone Y,T's Side right Reps/Minutes 10x2 Comments verbal and tactile cues; reported difficulty Y's but no pain Sidelying Exercises side plank Reps/Minutes 3x10 sec Comments fatigued rapidly on right with shaking, cues for alignment scap clocks Sidelying Exercise Name 9, 8, 7 Side right Resistance manual resistance Reps/Minutes 10x Comments verbal and tactile cues Manual Therapy Treatment Soft Tissue Mobilization right shoulder Body Location pec,Scalenes R lat clavicle, post cuff, UT and levator scap Mobilization Type Cross-Friction,Rolling, Sustained Pressure Intensity/Depth Moderate Body Position Hooklying Comments and sidelying Joint Mobilizations scapular mobilization Joint right Direction into depression and adduction Grade III Body Position Sidelying Reps/Duration X10 each GH right Direction ap and inf Grade IV Body Position Hooklying Reps/Duration X10 X2 Manual Techniques theracane Comments instruction in use periscap, UT Other Other Manual Treatments MWM use of theraband to facil lateral glide GH with hor add, patient reported decrease in pain PT-OP-T Assessment and Plan Start: 10/30/23 08:13 Freq: Status: Active Protocol: Document 03/16/24 09:43 [facility] (Rec: 03/16/24 10:34 [facility] [id number]) Physical Therapy Assessment Goals Three Impairment posterior chain and RC weakness Short Term Goal (STG) Patient to be instructed in individualized, progressive HEP for purposes of posterior chain and RC strengthening 12/11/23: continue to progress and modify, partiallymet 01/27/24: goal met STG Duration goal met [employer] Goal (LTG) Patient to demonstrate 5/5 muscle strength right shoulder for improved shoulder function 01/27/24: not fully met due to pain with resistance 03/16/24: all met except IR 4/5 with c/o pain LTG Duration 03/28/24 Two Impairment postural impairment Impairment moderate rounded shoulder posture with shoulder IR and scapular protraction Short Term Goal (STG) Patient to be instructed neutral posture for shoulder function and be instructed in postural correction exercises and activities 12/11/23: goal met STG Duration goal met [facility] Goal (LTG) Patient to be able to demonstrate good postural awareness and ability to self- correct without cues and be independnet and compliant with postural correction exercises and activities 01/27/24: patient still needing some verbal and tactile cues but improved 03/16/24: good goal progress, occasional cues required. LTG Duration 03/28/24 One Impairment activity tolerance Impairment Quickdash UE disability index score 32% impacting ADL's,work , and recreation Short Term Goal (STG) Decrease Quickdash score to no greater than 20% 12/11/23: goal progress, 24% 01/30/24: not done today. Patient continues to have difficulty reaching overhead, behind his back, and participating in recreastional activities. Right shoulder elevation end of PT session 155 degrees. 03/16/24: goal met STG Duration 02/27/24 [employer] Operator Goal (LTG) Decrease Quickdash score to no greater than 5% as measure of improved activity tolerance with ADL's, work, and recreational activities including ability to reach overhead and behind his back without pain. 03/16/24: goal mostly met, score16% LTG Duration 03/31/24 Assessment Summary Assessment right shoulder flexion to 168 with just tightness, reach across body sharp pain top of shoulder. shoulder abd 172. IR left T5, right T7. MMT right shoulder 5/5 except IR 4 /5 with c/o superior shoulder pain. Good goal progress. REviewed need for prone exercises, gradual resumption of exercises, patient demonstrated good understanding of self mob GH posterior glide with hor add using theraband. Physical Therapy Plan Frequency and Duration Frequency of Treatment 2x/Week Duration of treatment (weeks) 8 Plan of Care Start Date 01/27/24 Plan of Care End Date 03/28/24 Therapeutic Interventions Therapeutic Interventions Home Exercise Program,Joint Mobilizations,Manual Therapy, Neuromuscular Re-education, Patient/Caregiver Education, Self-Care/Home Management,Soft Tissue Mobilization,Taping, Therapeutic Activities, Therapeutic Exercises Modalities Cold Pack/Ice Massage,Electric Stimulation,Hot Packs, Infrared Therapy,Iontophoresis ,Ultrasound Next Visit Focus/Plan Next Note Type Treatment Note Next Visit Plan Patient to email regarding MRI results and if further PT needed.
--- NOTE | 2024-09-06 08:57 | PT.OPDS ---
Current Diagnoses Pain in right shoulder (03/16/24) Abnormal posture (03/16/24) Weakness (03/16/24) Strain of muscle and tendon of front wall of thorax, initial encounter (03/16/24) Visit Care Team Role Provider Type Lenin Clemons MD Attending Provider Physician Family Provider Primary Care Provider Referring Provider Specialty: [facility] Practice Address: [facility] [place], [address] Email: [email or web address] Visit Number Visit Number 12 Discharge Summary PT-OP-B Current Condition Start: 10/30/23 08:13 Freq: Status: Active Protocol: Document 02/18/24 08:55 SAK (Rec: 02/18/24 09:49 SAK [id number]) Current Condition History of Current Condition Onset Date 6 months Current Complaints right shoulder pain History of Current Condition first experienced pain when 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 Has't gotten better even with rest, cant reach behind back, painful lifting overhead. 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 Painful to sleep on right side. now painful picking up his 60 lb daughter Prior Treatments and Tests Ice, heat; didn't help much. Future Testing and Treatments Planned return to Dr. Barahona PT-OP-C Subjective Start: 10/30/23 08:13 Freq: Status: Active Protocol: Document 03/16/24 09:43 SAK (Rec: 03/16/24 10:34 SAK [id number]) OP-PT Subjective Patient Comments Patient Comments Most painful reaching across body to opp shoulder pain sharp top of shoulder otherwise generally 2/10 when uses arm. Reports 95% better than when first started PT. Got approved for MRI, had some paperwork issues, now referal can't be found, hopeful to get it soon. PT-OP-H Neuro Start: 10/30/23 08:13 Freq: Status: Active Protocol: Document 10/30/23 08:13 SAK (Rec: 10/30/23 09:03 SAK [id number]) Sensation Evaluation Gross Sensation Gross Sensation WNL PT-OP-J Posture/Palpation/Skin Start: 10/30/23 08:13 Freq: Status: Active Protocol: Document 10/30/23 08:13 SAK (Rec: 10/30/23 09:03 SAK [id number]) Posture Evaluation Position Sitting Head/C-Spine Posture Forward Head T-Spine Posture Increased Kyphosis Scapula Posture (L) Protracted,(R) Protracted Arm Posture (L) Internally Rotated,(R) Internally Rotated Palpation Assessment Location RC Palpation Findings Tenderness PT-OP-K Range of Motion Start: 10/30/23 08:13 Freq: Status: Active Protocol: Document 02/18/24 08:55 SAK (Rec: 02/18/24 09:49 SAK [id number]) Shoulder Goniometric Range of Motion Shoulder Right Shoulder ROM WFL No Flexion 180 Extension 167 Abduction 140 Horizontal Abduction 30 Internal Rotation Behind Back (text) T7 PT-OP-L Special Tests Start: 10/30/23 08:13 Freq: Status: Active Protocol: Document 10/30/23 08:13 SAK (Rec: 11/03/23 08:48 SAK [id number]) Special Tests Shoulder Special Tests [place] Impingement Test Results + Elevation Impingement Test Results + Drop Arm Rotator Cuff Test Results + inc pain Belly Press Test Results + inc pain PT-OP-M Strength Start: 10/30/23 08:13 Freq: Status: Active Protocol: Document 03/16/24 09:43 SAK (Rec: 03/16/24 10:34 SAK [id number]) Scapula Strength Scapula Manual Muscle Testing Right Elevation (C4) 5 Normal Adduction 4+ Good+ Abduction 4+ Good+ Depression 4+ Good+ Shoulder Strength Shoulder Manual Muscle Testing Right Flexion 4+ Good+ Extension 4+ Good+ Abduction (C5) 5 Normal Adduction 4 Good External Rotation 4 Good Internal Rotation 4 Good Horizontal Abduction 4 Good Comments lower trap 3-/5 Left Flexion 5 Normal Extension 5 Normal Abduction (C5) 5 Normal Adduction 5 Normal External Rotation 5 Normal Internal Rotation 5 Normal Horizontal Abduction 5 Normal Elbow/Forearm Strength Elbow and Forearm Manual Muscle Testing oralia Flexion (C6) 5 Normal Extension (C7) 5 Normal PT-OP-T Assessment and Plan Start: 10/30/23 08:13 Freq: Status: Active Protocol: Document 09/06/24 08:56 SAK (Rec: 09/06/24 08:57 SAK [id number]) Physical Therapy Plan Discharge Physical Therapy Discharge Reasons No Longer Attending PT
== END 2024-09-08 15:36 | disposition home or self-care (01) ==
LOC: PHYS 09:45
PROVIDERS: Family Provider Family Medicine; PCP Family Medicine; Referring Provider Family Medicine; Visit Provider Family Medicine
DX: M25.511 Pain in right shoulder (principal); S29.011A Strain of muscle and tendon of front wall of thorax, initial encounter; R29.3 Abnormal posture; R53.1 Weakness
CPT/HCPCS: 97110; 97140; 97161; 97535

== ENCOUNTER → 2024-03-23 11:41 | Outpatient (CLI) | payer OTHER, SELFPAY ==
--- NOTE | 2024-03-23 11:42 | DI.MRI.S_ITS ---
PROCEDURE: MR SHOULDER RT WO CON INDICATIONS: Pain in right shoulder TECHNIQUE: Noncontrast oblique coronal T2 fast spin echo with fat saturation, oblique sagittal T1 spin echo and T2 fast spin echo with fat saturation, axial T1 spin echo and T2 fast spin echo with fat saturation through the shoulder. COMPARISON: None. FINDINGS: Moderate increased T2 weighted signal with thinning of the distal supraspinatus and subscapularis tendons suspicious for partial tear with mild associated subacromial / subdeltoid bursal fluid. The infraspinatus and teres minor tendons appear intact throughout. Sagittal images demonstrate no significant muscle atrophy. Irregular appearance, increased T2 weighted signal and thinning of the coracohumeral ligament extending into the long head biceps tendon, anterior-superior labrum commonly related to prior injury/strain, chronic degenerative changes, SLAP tear or other process. Moderate increased T2 weighted signal within and surrounding the coraco clavicular ligament suggesting ligamentous injury more likely chronic than acute. Moderate degenerate changes of the acromioclavicular joint with subchondral edema, osteophytes, mildly increased joint fluid, adjacent mildly increased bursal fluid. Type 1 flat acromion. Mild to moderate increased T2 weighted signal with thickening of the biceps anchor. No normal physiologic amount of fluid surrounding the biceps tendon within the biceps groove without gross tenosynovitis. Image quality: Excellent. Patient motion artifacts are noted. IMPRESSION: Moderate increased signal with thinning of the distal supraspinatus and subscapularis tendons suspicious for partial tear with mild bursal fluid. Irregular appearance, increased signal and thinning of the coracohumeral ligament, long head biceps tendon, anterior-superior labrum commonly related to prior injury/strain, chronic degenerative changes, SLAP tear or other process. Moderate increased signal within and surrounding the coraco clavicular ligament. Moderate degenerate changes of the acromioclavicular joint. Mild to moderate increased signal with thickening of the biceps anchor. Dictated by: Jeremiah Londono M.D. on 03/23/2024 at 15:47 Approved by: Jeremiah Londono M.D. on 03/23/2024 at 16:25
== END ==
LOC: MRI 11:42
PROVIDERS: Family Provider Family Medicine; PCP Family Medicine; Referring Provider Family Medicine; Visit Provider Family Medicine
DX: M25.511 Pain in right shoulder (principal)
CPT/HCPCS: 73221